=== PATIENT | male | born 1955 | race African-American/Black ===

== ENCOUNTER 2021-12-26 07:55 | Outpatient (CLI) | payer MEDICARE, SELFPAY ==
--- NOTE | 2021-12-27 09:48 | WPDPFTINT ---
PFT Procedure Performed PFT Procedure Performed Spirometry with Pre/Post Bronchodilator Plethysmography (Lung Vol) Diffusing Cap (DLCO) Flow Vol Loop PFT Interpretation Lung volumes were measured with the body plethysmography method. The diminished across the board lung volumes are indicative of restrictive respiratory disease. Spirometry showed diminished expiratory flow rates and a diminished FEV1 to FVC ratio of 87% also consistent with restrictive respiratory disease. Following administration of a bronchodilator there was no significant increase in the expiratory flow rates. Lung diffusion capacity is severely reduced at 48% predicted. The volume versus time tracing is consistent with suboptimal effort, which may in part explain the restrictive pattern on spirometry. Clinical correlation advised. Impression: Suboptimal effort. Moderate Restrictive respiratory disease. Severely reduced lung diffusion capacity.
--- NOTE | 2021-12-27 09:54 | WPDSIXMINUTE ---
Six Minute Walk Procedure Procedure Performed Pulmonary Stress Test (6 min walk) Six Minute Walk Six Minute Walk: This 6 minute walk test was carried out with the patient breathing ambient air. The pre walk oxyhemoglobin saturation was 95%. The patient walked over 251 meters with no pauses during testing. During the walk the oxyhemoglobin saturation remained in the range of 89% to 92%. Impression: No evidence of significant oxyhemoglobin desaturation on this testing.
== END 2021-12-26 07:56 | disposition home or self-care (01) ==
LOC: ANHPFT 07:59
PROVIDERS: PCP Internal Medicine; Visit Provider Nurse Practitioner
DX: R94.2 Abnormal results of pulmonary function studies (principal); Z86.16 Personal history of COVID-19
CPT/HCPCS: 94375; 94618; 94726; 94729

== ENCOUNTER 2022-02-03 10:37 | Outpatient (CLI) | payer MEDICARE, SELFPAY ==
--- NOTE | ~2022-02-03 | CT_ITS ---
EXAMINATION: CT diagnostic chest wo con DATE: 02/03/2022 11:49 INDICATION: Lung function restrictive TECHNIQUE: Computed tomography (CT) of the chest was performed without intravenous contrast. The dose -length product (DLP) was 653.83 mGy-cm. Automated exposure control and iterative reconstruction tech nique were employed. COMPARISON: None FINDINGS: There is a 3 mm nodule in the left lung apex. There are widespread groundglass opacities of the lungs with areas of bronchiectasis throughout the lungs, worst in the right upper lobe. Some are as of subpleural reticular opacity are also noted. No pleural effusion or pneumothorax. The heart siz e is normal. There are no pathologically enlarged thoracic lymph nodes. There is severe thoracic spon dylosis. Cysts of the liver measure up to 8 mm in the left hepatic lobe. IMPRESSION: 1. Chronic lung disease with areas of bronchiectasis and some areas with a pattern consistent with no nspecific interstitial pneumonia (NSIP). Reviewed, dictated and finalized at location A. IMPRESSION: 1. Chronic lung disease with areas of bronchiectasis and some areas with a jermain donavon consistent with nonspecific interstitial pneumonia (NSIP).
== END 2022-02-03 10:38 | disposition home or self-care (01) ==
LOC: ANHIMG 10:38
PROVIDERS: PCP Internal Medicine; Visit Provider Nurse Practitioner
DX: R94.2 Abnormal results of pulmonary function studies (principal); J98.4 Other disorders of lung; J47.9 Bronchiectasis, uncomplicated; R91.8 Other nonspecific abnormal finding of lung field
CPT/HCPCS: 71250

== ENCOUNTER 2022-07-29 08:15 | Outpatient (CLI) | payer MEDICARE, SELFPAY ==
--- NOTE | ~2022-07-29 | CT_ITS ---
EXAMINATION:CT diagnostic chest wo con DATE: 07/29/2022 08:35 INDICATION: Fibrosis of lung. TECHNIQUE: Computed tomography (CT) of the chest was performed without intravenous contrast. Automate d exposure control and iterative reconstruction technique were employed. The dose-length product (DLP ) was 679.49 mGy-cm. COMPARISON: Chest CT 02/03/2022 FINDINGS: There is bronchiectasis in the upper lobes, right middle lobe, and lingula. There are scatt ered areas of septal thickening and groundglass opacities in all lobes with relative sparing of left lower lobe. No honeycombing. No pleural effusion. There is left atrial enlargement of the heart. No p ericardial effusion. There are cysts in the liver measuring up to 10 mm. There is thoracic dextroscol iosis and kyphosis. There is mild chronic anterior wedging of multiple thoracic vertebral bodies. The re is severe cervical spondylosis and moderate thoracic spondylosis. IMPRESSION: 1. Chronic interstitial lung disease in a pattern of nonspecific interstitial pneumonia (NSIP), stabl sujit from 02/03/2022. Reviewed, dictated and finalized at location A. IMPRESSION: 1. Chronic interstitial lung disease in a pattern of nonspecific interstitial p neumonia (NSIP), stable from 02/03/2022.
== END 2022-07-29 08:16 | disposition home or self-care (01) ==
PROVIDERS: PCP Internal Medicine; Visit Provider Nurse Practitioner
DX: J84.10 Pulmonary fibrosis, unspecified (principal); J84.9 Interstitial pulmonary disease, unspecified
CPT/HCPCS: 71250

== ENCOUNTER 2023-01-29 07:39 | Outpatient (CLI) | payer MEDICARE, SELFPAY ==
--- NOTE | ~2023-01-29 | CT_ITS ---
EXAMINATION: CT chest high resolution wo de DATE: 01/29/2023 08:04 INDICATION: Interstitial lung disease TECHNIQUE: Computed tomography (CT) of the chest was performed without intravenous contrast. The dose -length product (DLP) was 477.38 mGy-cm. Automated exposure control and iterative reconstruction tech [employer] were employed. COMPARISON: 07/29/2022 FINDINGS: There are widespread groundglass opacities and bronchiectasis throughout the lungs without significant change. Widespread subpleural reticular opacities are also unchanged. There is a stable 3 mm nodule of the left lung apex. There are trace pleural effusions. No pneumothorax is identified. T here are no pathologically enlarged thoracic lymph nodes. Left atrial enlargement of the heart is not ed. There is moderate thoracic spondylosis. Cysts of the liver measure up to 10 mm in the left hepati c lobe. IMPRESSION: 1. Chronic interstitial lung disease in a pattern of nonspecific interstitial pneumonia (NSIP) withou t significant change. Reviewed, dictated and finalized at location L. IMPRESSION: 1. Chronic interstitial lung disease in a pattern of nonspecific interstitial p neumonia (NSIP) without significant change.
== END 2023-01-29 07:40 | disposition home or self-care (01) ==
PROVIDERS: PCP Internal Medicine; Visit Provider Nurse Practitioner
DX: J84.9 Interstitial pulmonary disease, unspecified (principal)
CPT/HCPCS: 71250

== ENCOUNTER 2024-09-20 10:27 | Emergency (ER) | payer MEDICARE, SELFPAY ==
--- NOTE | ~2024-09-20 | XR_ITS ---
XR chest 2V 09/20/2024 12:21 Indication: Weakness Procedure: PA and lateral views of the chest Comparison: No prior studies for comparison. Findings: There are coarse interstitial changes bilaterally. There is subtle airspace disease right m id and lower thorax as well as the left lower thorax. No pleural effusion or pneumothorax. Heart size normal. No acute osseous abnormality. Impression: 1: Mixed bilateral interstitial and airspace disease. Differential diagnosis includes edema, pneumoni a and/or interstitial fibrosis. Reviewed, dictated and finalized at location A. Impression: 1: Mixed bilateral interstitial and airspace disease. Differential diagnosis in cludes edema, pneumonia and/or interstitial fibrosis.
[2024-09-20 10:31] VITALS: BP 134/75; PULSE 58; RESP 16; TEMP 36.6; O2SAT 97
[2024-09-20 10:40] VITALS: BP 131/85; PULSE 70; RESP 12; O2SAT 96
--- OUTSIDE RECORDS SUMMARY | 2024-09-20 10:50 | XMS_ITS | Patient Health Record ---
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 Role Phone Alden Infante MD Primary Care Provider Unavail Katina Koenig Unavailable [phone] Allergies No Known Allergies Reason For Referral No Information Medications Medication SIG (Take, Route, Frequency, Duration) Notes Start Date End Date Status hydrALAZINE HCl Acti ve hydroCHLOROthiazide Active Vicodin PRN Active Cyclobenzaprine HCl Active oxyBUTYnin Chloride ER Active Metoprolol Succinate Active HYDROcodone-Acetaminophen Active Social History Tobacco Use: Social History Observation Description Date Details (start date - stop date) Never Smoker NA - NA Tobacco Use/Smoking Question Answer Notes Are you a nonsmoker Problems Problem Type SNOMED Code ICD Code Onset Dates Problem Status W/U Status Risk Notes Problem 46307452 Type 2 diabetes mellitus with other diabetic neurological complication (E11.49) Active confirmed Problem 09473529 Type 2 diabetes mellitus with hyperglycemia (E11.65) Active confirmed Problem 835328872 FDC (current) use of insulin (Z79.4) Active confirmed Problem 064114698 Hallux rigidus o f right foot (M20.21) Active confirmed Problem Type 2 diabetes mellitus without complication (E11.9) Active confirmed Problem 40770708 Neuropathic pain of both feet (G62.9) Active confirmed Vital Signs Height 68 in 07/07/2024 Weight 260 lbs 07/07/2024 BMI 39.53 kg/m2 07/07/2024 Encounters Encounter Location Date Provider Diagnosis 1 OF [facility] [address] [place] [address] 11/19/2023 Katina Gallagher Type 2 diabetes sunil itus with other diabetic neurological complication E11.49 ; Onychogryphosis L60.2 and Callus of foot L84 1 OF [facility] [place] [address] [place] [id number] 02/04/2024 Katina Gallagher Type 2 diabetes sunil itus with other diabetic neurological complication E11.49 ; Onychogryphosis L60.2 and Callus of foot L84 1 OF [facility] [place] [address] [place] [address] 04/28/2024 Katina Gallagher Type 2 diabetes sunil itus with other diabetic neurological complication E11.49 ; Onychogryphosis L60.2 and Callus of foot L84 1 OF [facility] [place] [address] [place] [address] 05/19/2024 Katina Gallagher Type 2 diabetes sunil itus with other diabetic neurological complication E11.49 1 OF [facility] [place] [address] [place] [address] 06/23/2024 Katina Gallagher Type 2 diabetes sunil itus with other diabetic neurological complication E11.49 1 OF [facility] [place] [address] [place] [address] 07/07/2024 Katina Gallagher Type 2 diabetes sunil itus with other diabetic neurological complication E11.49 ; Onychogryphosis L60.2 ; Callus of foot L84 and Nerve pain M79.2 Assessments Encounter Date Diagnosis (ICD Code) Assessment Notes Treatment Notes Treatment Clinical Notes Section Notes 11/19/2023 Type 2 diabetes mellitus with other diabetic neurological complication (ICD-10 - E11.49) Considering the associated comorbidities and physical exam findings today, this patient is at substantial risk of developing serious foot complications in the absence of regular and professional palliative foot care. 11/19/2023 Onychogryphosis (ICD-10 - L60.2) 02/04/2024 Type 2 diabetes mellitus with other diabetic neurological complication (ICD-10 - E11.49) Considering the associated comorbidities and physical exam findings today, this patient is at substantial risk of developing serious foot complications in the absence of regular and professional palliative foot care. 04/28/2024 Type 2 diabetes mellitus with other diabetic neurological complication (ICD-10 - E11.49) Considering the associated comorbidities and physical exam findings today, this patient is at substantial risk of developing serious foot complications in the absence of regular and professional palliative foot care. 05/19/2024 Type 2 diabetes mellitus with other diabetic neurological complication (ICD-10 - E11.49) 06/23/2024 Type 2 diabetes mellitus with other diabetic neurological complication (ICD-10 - E11.49) 07/07/2024 Type 2 diabetes mellitus with other diabetic neurological complication (ICD-10 - E11.49) Considering the associated comorbidities and physical exam findings today, this patient is at substantial risk of developing serious foot complications in the absence of regular and professional palliative foot care. 07/07/2024 Onychogryphosis (ICD-10 - L60.2) 07/07/2024 Callus of foot (ICD-10 - L84) 04/28/2024 Onychogryphosis (ICD-10 - L60.2) 02/04/2024 Onychogryphosis (ICD-10 - L60.2) 11/19/2023 Callus of foot (ICD-10 - L84) 02/04/2024 Callus of foot (ICD-10 - L84) 04/28/2024 Callus of foot (ICD-10 - L84) 07/07/2024 Nerve pain (ICD-10 - M79.2) Evaluation today included a review of medical history, review of systems, discussion of exam findings, and review of diagnoses and treatment options. Discussed signs and symptoms of peripheral neuropathy associated with diabetes. Discussed treatment options including topical and oral medications. He would like to hold off on any prescriptions at this time. I discussed the importance of keeping his blood sugar under control to prevent worsening of the symptoms. I also discussed that sometimes vitamin B12 can be helpful with reducing some of the nerve symptoms. Plan Of Treatment Next Appt Details Provider Name:Katina Gallagher, 10/17/2024 08:10:00 AM, [address], [place], [address], Insurance Providers Payer Name Payer Address Payer Phone Subscriber Number Group Number Insured Name Patient Relationship to Insured Coverage Start Date Coverage End Date [employer] Medicare Complete [address] [address] [place] [address] [id number] Kris Gaines Self - patient is the insured Medical (General) History Medical History History ICD Code arthritis, diabetes, high blood pressure , Surgical History Surgery Date(Month/Year)
--- OUTSIDE RECORDS SUMMARY | 2024-09-20 10:50 | XMS_ITS | Patient Health Record ---
Author Organization [facility] Address [address] [address] Care Team Providers Care Faculty Member Name Role Phone InfanteEarle marquezbbir Primary Care Provider [phone] Allergies Allergen (clinical drug ingredient) Drug/Non Drug Allergy documented on EMR Reaction Allergy Type Onset Date Status amlodipine Amlodipine Besylate Unknown Drug Allergy Active Lisinopril Unknown Drug Allergy Active Reason For Referral No Information Medications Medication SIG (Take, Route, Frequency, Duration) Notes Start Date End Date Status Spiriva Respimat 2.5 MCG/ACT 2 puffs Inh alation Once a day for 30 days Not-Taking hydroCHLOROthiazide 25 MG Take 1 tablet by mouth once daily for 60 days Active Doxycycline Hyclate 100 MG 1 capsule Ora lly every 12 hrs for 7 days 04/01/2018 Not-Taking Ergocalciferol 11938 IU 1 tablet Orally Once a week Not-Taking Tessalon Perles 100 MG 1 capsule as need ed Orally Three times a day for 7 days 03/22/2018 Not-Taking Cefuroxime Axetil 250 MG 1 tablet Orally every 12 hrs for 7 days 03/22/2018 Not-Taking Mi-Acid Gas Relief 80 MG 1 tablet after meals and at bedtime as needed Orally Four times a day Not-Taking oxyBUTYnin Chloride ER 15 MG 1 tablet Or ally Once a day Not-Taking guaiFENesin-Codeine 100-10 MG/5ML 5 ml Orally every 6 hrs for 30 days 06/01/2019 Not-Taking DOK 100 MG 1 tablet as needed Orally every 12 hours for 30 days Not-Taking HYDROcodone-Acetaminophen 5-325 MG 1 tablet as needed Orally every 6 hrs Not-Taking Atorvastatin Calcium 10 MG TAKE 1 TABLET BY MOUTH AT BEDTIME for 90 Not-Taking ProAir HFA 108 (90 Base) MCG/ACT 2 puffs as needed Inhalation every 6 hrs for 7 days 03/22/2018 Not-Taking ProAir HFA 108 (90 Base) MCG/ACT 2 puffs as needed Inhalation every 4 hrs for 30 days Not-Taking Cyclobenzaprine HCl 10 MG 1 tablet daily Orally for 30 days Not-Taking Lotrisone 1-0.05 % 1 application to affected area as needed Externally Twice a day for 30 days Not-Taking Tessalon Perles 100 MG 1 capsule as need ed Orally Three times a day for 7 days 06/10/2019 Not-Taking Benzonatate 100 MG 1 capsule as needed Orally Three times a day Not-Taking Ibuprofen 800 MG 1 tablet with food or milk as needed Orally Once a day for 30 days Active Metoprolol Tartrate 25 1 tablet with simin d Orally Once a day for 90 days Not-Taking Albuterol Sulfate HFA 108 (90 Base) MCG/ACT 2 puffs as needed Inhalation every 6 hrs for 30 days 04/19/2018 Active hydrALAZINE HCl 25 1 tablet Orally Three times a day for 30 Not-Taking Metoprolol Tartrate 25 MG Take 1 tablet by mouth once daily with food for 90 days Active Tessalon Perles 100 MG 1 capsule as need ed Orally Three times a day for 7 days 04/08/2018 Not-Taking hydrALAZINE HCl 25 MG TAKE 1 TABLET BY MOUTH THREE TIMES DAILY for 90 Active Tessalon Perles 100 MG 1 capsule as need ed Orally Three times a day for 7 days 04/29/2018 Not-Taking Doxycycline Hyclate 100 MG 1 capsule Ora lly every 12 hrs for 7 days 06/01/2019 Not-Taking Protonix 40 MG 1 tablet Orally Once a day for 30 Not-Taking MiraLax Mix-In [place] 17 GM 1 packet mixed with 8 ounces of fluid Orally Once a day Active Ciprofloxacin HCl 500 MG 1 tablet Orally every 12 hrs for 5 days 10/13/2018 Not-Taking traMADol HCl 50 MG 1 tablet as needed Orally Q 6 hours for 10 days Not-Taking Immunizations Vaccine Route Administration Date Status Comme nts Influenzal (split), seasonal, intermuscular,preservative free IM Intramuscular 02/05/2017 Administered Influenzal (split), seasonal, intermuscular,preservative free IM Intramuscular 01/07/2019 Administered Influenza, seasonal, injectable, preservative free, 3 yrs and above IM Intramuscular 03/20/2016 Pending Social History Tobacco Use: Social History Observation Description Date Details (start date - stop date) Never Smoker NA - NA Tobacco Use/Smoking Question Answer Notes Are you a nonsmoker Additional Findings: Tobacco Non-User Current no n-smoker Alcohol Screen (Audit-C) Question Answer Notes Did you have a drink containing alcohol in the p ast year? No Points 0 Interpretation Negative Tobacco use other than smoking: Question Answer Notes Are you an other tobacco user? No Problems Problem Type SNOMED Code ICD Code Onset Dates Problem Status W/U Status Risk Notes Problem Malignant neoplasm of prostate (079124624) Malignant neoplasm of prostate (C61) Active confirmed Problem Complication due to diabetes mellitus type 2 (42648054576590) Type 2 diabetes mellitus with other specified complication (E11.69) Active confirmed Problem Disorder due to type 2 diabetes mellitus (756292193) Type 2 diabetes mellitus with unspecified complications (E11.8) Active confirmed Problem 0301453 Cardiomegaly (I51.7) Active confirmed Problem Restless legs (51066147) RLS (restless legs syndrome) (G25.81) Active confirmed Problem Hyperlipidemia (62246967) Hyperlipidemia (E78.5) Active confirmed Problem 49422574 Anxiety (F41.9) Active confirmed Problem 905426454 Gastroesophageal reflux disease without esophagitis (K21.9) Active confirmed Problem Vitamin D deficiency (45897420) Vitamin D deficiency (E55.9) Active confirmed Problem 84215682 Chronic obstruct chris pulmonary disease, unspecified COPD type (J44.9) Active confirmed Problem Constipation (97737961) Constipation (K59.00) Active confirmed Problem Obstructive sleep apnea syndrome (31829559) KODAK (obstructive sleep apnea) (G47.33) Active confirmed Problem 6098068 Benign essential hypertension (I10) Active confirmed Problem Generalized osteoarthritis (230679030) Generalized osteoarthritis (M15.9) Active confirmed Problem 277828590 Diverticulosis o f colon (K57.30) Active confirmed Problem 380297513 Morbid obesity (E66.01) Active confirmed Problem 71170661 Degeneration of cervical intervertebral disc (M50.30) Active confirmed Problem Pulmonary fibrosis (14173916) Pulmonary fibrosis (J84.10) Active confirmed Problem 90142610 DDD (degenerativ e disc disease), thoracic (M51.34) Active confirmed Problem Lumbar spondylosis (917006810) Lumbar spondylosis (M47.816) Active confirmed Problem Localized, primary osteoarthritis of the pelvic region and thigh (123055799) Osteoarthritis of right hip (M16.11) Active confirmed Problem History of malignant neoplasm of prostate (519866177) History of prostate cancer (Z85.46) Active confirmed Problem Osteoarthritis of knee (420874595) Osteoarthritis of right knee (M17.11) Active confirmed Problem Atypical chest pain (931743876) Atypical chest pain (R07.89) Active confirmed Problem 503718682 Numbness of feet (R20.0) Active confirmed Problem 1068485 Proctitis (K62.89) Active confirmed Problem 862117863 Type 2 diabetes mellitus without complication, without long-term current use of insulin (E11.9) Active confirmed Problem 87984801 Type 2 diabetes mellitus with hyperglycemia, without long-term current use of insulin (E11.65) Active confirmed Problem 23181526 DM (diabetes mellitus), 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) Active confirmed Problem Diabetic peripheral neuropathy associated with type 2 diabetes mellitus (8076973497038) Controlled type 2 diabetes mellitus with neuropathy (E11.40) Active confirmed Problem 429954987 COVID-19 virus infection (U07.1) Active confirmed Problem Abnormal CXR (ch est x-ray) (R93.89) Active confirmed Problem 0679546 Non-compliance (Z91.199) Active confirmed Vital Signs Heart Rate 74 /min 08/04/2024 ple Temperature 97.9 degrees Fahrenheit 08/04/2024 ple Respiratory Rate 16 /min 08/04/2024 ple Blood pressure diastolic 74 mm Hg 08/04/2024 ple Oximetry 98 % 08/04/2024 ple Height 68 in 08/04/2024 ple Blood pressure systolic 120 mm Hg 08/04/2024 ple Weight 257 lbs 08/04/2024 ple BMI 39.07 kg/m2 08/04/2024 ple Encounters Encounter Location Date Provider Diagnosis [address] [address] 09/22/2023 Alden Infante Type 2 diabetes sunil itus with hyperglycemia, without long-term current use of insulin E11.65 ; Type 2 diabetes mellitus with other specified complication E11.69 ; Benign essential hypertension I10 ; Hyperlipidemia E78.5 ; Chronic obstructive pulmonary disease, unspecified COPD type J44.9 ; Gastroesophageal reflux disease without esophagitis K21.9 ; Morbid obesity E66.01 ; KODAK (obstructive sleep apnea) G47.33 and Malignant neoplasm of prostate C61 [facility] [address] [address] 01/13/2024 Alden Infante Type 2 diabetes sunil itus with hyperglycemia, without long-term current use of insulin E11.65 ; DM (diabetes mellitus), type 2 with neurological complications E11.49 ; Benign essential hypertension I10 ; Hyperlipidemia E78.5 ; Chronic obstructive pulmonary disease, unspecified COPD type J44.9 ; KODAK (obstructive sleep apnea) G47.33 and Vitamin D deficiency E55.[address] [address] 04/18/2024 Alden Infante Type 2 diabetes sunil itus with hyperglycemia, without long-term current use of insulin E11.65 ; Type 2 diabetes mellitus with unspecified complications E11.8 ; Hyperlipidemia E78.5 ; Benign essential hypertension I10 ; Chronic obstructive pulmonary disease, unspecified COPD type J44.9 ; Gastroesophageal reflux disease without esophagitis K21.9 ; Morbid obesity E66.01 ; History of prostate cancer Z85.46 ; Anxiety F41.9 and Vitamin D deficiency E55.[address] [address] 05/12/2024 Alden Infante Advance care plannin olman Z71.89 ; Encounter for general adult medical examination without abnormal findings Z00.00 ; Abdominal pain R10.9 ; Benign essential hypertension I10 ; Hyperlipidemia E78.5 and Gastroesophageal reflux disease without esophagitis K21.[address] [address] 05/27/2024 Alden Infante Type 2 diabetes sunil itus with hyperglycemia, without long-term current use of insulin E11.65 ; DM (diabetes mellitus), type 2 with neurological complications E11.49 ; Benign essential hypertension I10 ; Hyperlipidemia E78.5 ; KODAK (obstructive sleep apnea) G47.33 ; Morbid obesity E66.01 ; RLS (restless legs syndrome) G25.81 ; History of prostate cancer Z85.46 ; Abnormal CXR (chest x-ray) R93.89 ; Pulmonary fibrosis J84.10 ; Atypical chest pain R07.89 ; Constipation K59.00 ; Malignant neoplasm of prostate C61 ; Chronic obstructive pulmonary disease, unspecified COPD type J44.9 ; Anxiety F41.9 and Controlled type 2 diabetes mellitus with neuropathy E11.40 [place] [id number] [address] 08/04/2024 Alden Infante Type 2 diabetes sunil itus with hyperglycemia, without long-term current use of insulin E11.65 ; DM (diabetes mellitus), type 2 with neurological complications E11.49 ; Benign essential hypertension I10 ; Hyperlipidemia E78.5 ; Cardiomegaly I51.7 ; KODAK (obstructive sleep apnea) G47.33 ; Anxiety F41.9 and Non-compliance Z91.199 Assessments Encounter Date Diagnosis (ICD Code) Assessment Notes Treatment Notes Treatment Clinical Notes Section Notes 09/22/2023 Type 2 diabetes mellitus with hyperglycemia, without long-term current use of insulin (ICD-10 - E11.65) Type 2 Diabetes: Care Instructions material was published to portal 04/18/2024 Type 2 diabetes mellitus with hyperglycemia, without long-term current use of insulin (ICD-10 - E11.65) Type 2 Diabetes: Care Instructions material was published 01/13/2024 Type 2 diabetes mellitus with hyperglycemia, without long-term current use of insulin (ICD-10 - E11.65) Type 2 Diabetes: Care Instructions material was published 05/12/2024 Advance care planning (ICD-10 - Z71.89) 05/12/2024 Encounter for general adult medical examination without abnormal findings (ICD-10 - Z00.00) 05/27/2024 Type 2 diabetes mellitus with hyperglycemia, without long-term current use of insulin (ICD-10 - E11.65) Type 2 Diabetes: Care Instructions material was published 05/27/2024 DM (diabetes mellitus), type 2 with neurological complications (ICD-10 - E11.49) 08/04/2024 Type 2 diabetes mellitus with hyperglycemia, without long-term current use of insulin (ICD-10 - E11.65) Type 2 Diabetes: Care Instructions material was published 08/04/2024 DM (diabetes mellitus), type 2 with neurological complications (ICD-10 - E11.49) 08/04/2024 Benign essential hypertension (ICD-10 - I10) 09/22/2023 Type 2 diabetes mellitus with other specified complication (ICD-10 - E11.69) 05/27/2024 Benign essential hypertension (ICD-10 - I10) 05/12/2024 Abdominal pain (ICD-10 - R10.9) Abdominal Pain: Care Instructions material was published 01/13/2024 DM (diabetes mellitus), type 2 with neurological complications (ICD-10 - E11.49) 04/18/2024 Type 2 diabetes mellitus with unspecified complications (ICD-10 - E11.8) 09/22/2023 Benign essential hypertension (ICD-10 - I10) 04/18/2024 Hyperlipidemia (ICD-10 - E78.5) 01/13/2024 Benign essential hypertension (ICD-10 - I10) 05/12/2024 Benign essential hypertension (ICD-10 - I10) 05/27/2024 Hyperlipidemia (ICD-10 - E78.5) 08/04/2024 Hyperlipidemia (ICD-10 - E78.5) 08/04/2024 Cardiomegaly (ICD-10 - I51.7) 05/27/2024 KODAK (obstructive sleep apnea) (ICD-10 - G47.33) 05/12/2024 Hyperlipidemia (ICD-10 - E78.5) 01/13/2024 Hyperlipidemia (ICD-10 - E78.5) 04/18/2024 Benign essential hypertension (ICD-10 - I10) 09/22/2023 Hyperlipidemia (ICD-10 - E78.5) 09/22/2023 Chronic obstructive pulmonary disease, unspecified COPD type (ICD-10 - J44.9) 04/18/2024 Chronic obstructive pulmonary disease, unspecified COPD type (ICD-10 - J44.9) 01/13/2024 Chronic obstructive pulmonary disease, unspecified COPD type (ICD-10 - J44.9) 05/12/2024 Gastroesophageal reflux disease without esophagitis (ICD-10 - K21.9) 05/27/2024 Morbid obesity (ICD-10 - E66.01) 08/04/2024 KODAK (obstructive sleep apnea) (ICD-10 - G47.33) 08/04/2024 Anxiety (ICD-10 - F41.9) 05/27/2024 RLS (restless legs syndrome) (ICD-10 - G25.81) 01/13/2024 KODAK (obstructive sleep apnea) (ICD-10 - G47.33) 04/18/2024 Gastroesophageal reflux disease without esophagitis (ICD-10 - K21.9) 09/22/2023 Gastroesophageal reflux disease without esophagitis (ICD-10 - K21.9) 09/22/2023 Morbid obesity (ICD-10 - E66.01) 04/18/2024 Morbid obesity (ICD-10 - E66.01) 01/13/2024 Vitamin D deficiency (ICD-10 - E55.9) 05/27/2024 History of prostate cancer (ICD-10 - Z85.46) 08/04/2024 Non-compliance (ICD-10 - Z91.199) 05/27/2024 Abnormal CXR (chest x-ray) (ICD-10 - R93.89) 04/18/2024 History of prostate cancer (ICD-10 - Z85.46) 09/22/2023 KODAK (obstructive sleep apnea) (ICD-10 - G47.33) 09/22/2023 Malignant neoplasm of prostate (ICD-10 - C61) 04/18/2024 Anxiety (ICD-10 - F41.9) 05/27/2024 Pulmonary fibrosis (ICD-10 - J84.10) 05/27/2024 Atypical chest pain (ICD-10 - R07.89) 04/18/2024 Vitamin D deficiency (ICD-10 - E55.9) 05/27/2024 Constipation (ICD-10 - K59.00) 05/27/2024 Malignant neoplasm of prostate (ICD-10 - C61) 05/27/2024 Chronic obstructive pulmonary disease, unspecified COPD type (ICD-10 - J44.9) 05/27/2024 Anxiety (ICD-10 - F41.9) 05/27/2024 Controlled type 2 diabetes mellitus with neuropathy (ICD-10 - E11.40) Plan Of Treatment Next Appt Details Provider Name:Alden loving, 11/17/2024 09:00:00 AM, [address] [facility], [address], [place], [address], Insurance Providers Payer Name Payer Address Payer Phone Subscriber Number Group Number Insured Name Patient Relationship to Insured Coverage Start Date Coverage End Date [employer] MEDICARE COMPLETE [address] [address] [place] [phone] [id number] JOSUE JHOANA Self - patient is the insured 8 Medications Administered Medication Instructions Date of Administration Dosage Notes Depo Medrol 20mg 04/29/2018 20 mg Medical (General) History Medical History History ICD Code Anxiety disorder Hypertension(benign) BPH(Benign prostatic hypertr oph without outflow obstruction),Note-Presently asymptomatic ,Note-C5-C6, L4-L5 and L5-S1 Cataract Cervical degenerative disc disease Lumbar degenerative disc disease Diverticulosis of colon without divertic ulitis Hallux valgus AND bunion Hammer toe Impaired glucose tolerance Legal blindness [place],Note-Right eye Low back pain,Note-Chronic Obesity Osteoarthritis Plantar fasciitis ,Note-03/18/2006 Restless legs Sinusitis Sleep apnea,Note-Did not go for CPAP tit ration Spinal stenosis in cervical region,Note- Mild, multilevel Surgical History Surgery Date(Month/Year) Cataract Surgery ; Colonoscopy [id number] ; Colonoscopy [id number] ; Myoview stress test ;
--- OUTSIDE RECORDS SUMMARY | 2024-09-20 10:50 | XMS_ITS ---
Author Organization [facility] Address [address] [facility] [address] [place] [address] Care Team Providers Care Gas Cutter Name Role Phone Alden Infante Primary Care Provider [phone] Encounters Encounter Location Date Provider Diagnosis [facility] [address] [facility] [address] [place] [address] 06/10/2024 Alden Infante Plan Of Treatment Next Appt Details Provider Name:Alden loving, 11/17/2024 09:00:00 AM, [address] [facility], [address], [place], [address], Progress Notes * JHOANA KYLE EDOB: (69 yo M)Acc No.[id number]:06/10/2024 Progress Notes Patient: Mima LAND JHOANA Yusuf Provider: Kathryn Infante M.D. :1955 A ge:68 Y S ex:Male Date:06/10/2024 Address:[address] [place], [place] [id number] Subjective: * Chief Complaints: * * Medical History: Objective: * Vitals: Assessment: Plan: * Treatment: * * Electronic signature of Ariel Infante MD on 09/20/2024 at 11:50 AM EDT Sign off status: Pending * Provider: Kathryn Infante M.D. Date: 06/10/2024 Generated for Norman rivera/Nabor/eTransmitting on: 0 09/20/2024 11:50 AM EDT
--- OUTSIDE RECORDS SUMMARY | 2024-09-20 10:51 | XMS_ITS ---
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 Name Role Phone Alden Infante Primary Care Provider [phone] Allergies Allergen (clinical drug ingredient) Drug/Non Drug Allergy documented on EMR Reaction Allergy Type Onset Date Status amlodipine Amlodipine Besylate Unknown Drug Allergy Active Lisinopril Unknown Drug Allergy Active REASON FOR VISIT F/U DM Medications Medication SIG (Take, Route, Frequency, Duration) Notes Start Date End Date Status Lotrisone 1-0.05 % 1 application to affected area as needed Externally Twice a day for 30 days Not-Taking Mi-Acid Gas Relief 80 MG 1 tablet after meals and at bedtime as needed Orally Four times a day Not-Taking oxyBUTYnin Chloride ER 15 MG 1 tablet Or ally Once a day Not-Taking guaiFENesin-Codeine 100-10 MG/5ML 5 ml Orally every 6 hrs for 30 days 06/01/2019 Not-Taking DOK 100 MG 1 tablet as needed Orally every 12 hours for 30 days Not-Taking Ergocalciferol 51759 IU 1 tablet Orally Once a week Not-Taking HYDROcodone-Acetaminophen 5-325 MG 1 tablet as needed Orally every 6 hrs Not-Taking Atorvastatin Calcium 10 MG TAKE 1 TABLET BY MOUTH AT BEDTIME for 90 Not-Taking ProAir HFA 108 (90 Base) MCG/ACT 2 puffs as needed Inhalation every 4 hrs for 30 days Not-Taking Cyclobenzaprine HCl 10 MG 1 tablet daily Orally for 30 days Not-Taking Spiriva Respimat 2.5 MCG/ACT 2 puffs Inh alation Once a day for 30 days Not-Taking hydroCHLOROthiazide 25 MG Take 1 tablet by mouth once daily for 60 days Active Ibuprofen 800 MG 1 tablet with food or milk as needed Orally Once a day for 30 days Active Metoprolol Tartrate 25 MG Take 1 tablet by mouth once daily with food for 90 days Active hydrALAZINE HCl 25 MG TAKE 1 TABLET BY MOUTH THREE TIMES DAILY for 90 Active Tessalon Perles 100 MG 1 capsule as need ed Orally Three times a day for 7 days 03/22/2018 Not-Taking Cefuroxime Axetil 250 MG 1 tablet Orally every 12 hrs for 7 days 03/22/2018 Not-Taking Albuterol Sulfate HFA 108 (90 Base) MCG/ACT 2 puffs as needed Inhalation every 6 hrs for 30 days 04/19/2018 Active ProAir HFA 108 (90 Base) MCG/ACT 2 puffs as needed Inhalation every 6 hrs for 7 days 03/22/2018 Not-Taking MiraLax Mix-In [place] 17 GM 1 packet mixed with 8 ounces of fluid Orally Once a day Active Doxycycline Hyclate 100 MG 1 capsule Ora lly every 12 hrs for 7 days 04/01/2018 Not-Taking Metoprolol Tartrate 25 1 tablet with simin d Orally Once a day for 90 days Not-Taking hydrALAZINE HCl 25 1 tablet Orally Three times a day for 30 Not-Taking Tessalon Perles 100 MG 1 capsule as need ed Orally Three times a day for 7 days 04/08/2018 Not-Taking Tessalon Perles 100 MG 1 capsule as need ed Orally Three times a day for 7 days 04/29/2018 Not-Taking Tessalon Perles 100 MG 1 capsule as need ed Orally Three times a day for 7 days 06/10/2019 Not-Taking Doxycycline Hyclate 100 MG 1 capsule Ora lly every 12 hrs for 7 days 06/01/2019 Not-Taking Protonix 40 MG 1 tablet Orally Once a day for 30 Not-Taking Ciprofloxacin HCl 500 MG 1 tablet Orally every 12 hrs for 5 days 10/13/2018 Not-Taking traMADol HCl 50 MG 1 tablet as needed Orally Q 6 hours for 10 days Not-Taking Benzonatate 100 MG 1 capsule as needed Orally Three times a day Not-Taking Social History Tobacco Use: Social History Observation [...] Are you an other tobacco user? 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 ; Benign essential hypertension I10 ; Hyperlipidemia E78.5 ; Cardiomegaly I51.7 ; KODAK (obstructive sleep apnea) G47.33 ; Anxiety F41.9 and Non-compliance Z91.199 Assessments Encounter Date Diagnosis (ICD Code) Assessment Notes Treatment Notes Treatment Clinical Notes Section Notes 08/04/2024 Type 2 diabetes mellitus with hyperglycemia, without long-term current use of insulin (ICD-10 - E11.65) Type 2 Diabetes: Care Instructions material was published 08/04/2024 DM (diabetes mellitus), type 2 with neurological complications (ICD-10 - E11.49) 08/04/2024 Benign essential hypertension (ICD-10 - I10) 08/04/2024 Hyperlipidemia (ICD-10 - E78.5) 08/04/2024 Cardiomegaly (ICD-10 - I51.7) 08/04/2024 KODAK (obstructive sleep apnea) (ICD-10 - G47.33) 08/04/2024 Anxiety (ICD-10 - F41.9) 08/04/2024 Non-compliance (ICD-10 - Z91.199) Plan Of Treatment Treatment Notes Assessment Notes Type 2 diabetes mellitus wit h hyperglycemia, without long-term current use of insulin Type 2 Diabetes: Care Instructions mater ial was published Next Appt Details Provider Name:Alden Souza fabienne, 11/17/2024 09:00:00 AM, [address] [facility], [place], [address], Progress Notes * JHOANA KYLE EDOB: [birth year] (69 yo M)Acc No.[id number]:08/04/2024 Progress Notes Patient: JHOANA OCAMPO Provider: Kathryn Infante M.D. :1955 A ge:69 Y S ex:Male Date:08/04/2024 Address:[address] [place], [place] [id number] Subjective: * Chief Complaints: * 1 . F/U DM. * Medical History: A nxiety disorder, Hypertension(benign), BPH(Benign prostatic hypertroph without outflow obstruction),Note-Presently asymptomatic, ,Note-C5-C6, L4-L5 and L5-S1, Cataract, Cervical degenerative disc disease, Lumbar degenerative disc disease, Diverticulosis of colon without diverticulitis, Hallux valgus AND bunion, Hammer toe, Impaired glucose tolerance, Legal blindness [place],Note-Right eye, Low back pain,Note-Chronic, Obesity, Osteoarthritis, Plantar fasciitis, ,Note-03/18/2006, Restless legs, Sinusitis, Sleep apnea,Note-Did not go for CPAP titration, Spinal stenosis in cervical region,Note-Mild, multilevel. * Surgical History: C ataract Surgery ; , Colonoscopy [id number] ; , Colonoscopy [id number] ; , Myoview stress test ; . * Family History: F ather: diagnosed with Diabetes mellitus without mention of complication, type II or unspecified type, not stated as uncontrolled. M aternal Grand Father: diagnosed with Other malignant neoplasm of unspecified site. 1 sister(s) - healthy. . * Social History: T obacco Use: T obacco Use/Smoking A re you a n onsmoker, A dditional Findings: Tobacco Non-User C urrent non-smoker. T obacco use other than smoking A re you an other tobacco user? N o. M igSocialHx: M igSocialHx: Alcohol Use (ANS-No) ;Drug Use (ANS-No) ;Exposed to Second Hand Smoke (ANS-No) ;History of IV Drug Use (ANS-No) ;Lives In (ANS-Home) ;Lives With (ANS-Spouse) ;Tobacco status (ANS-Never smoker) ;. D rugs/Alcohol: D rugs H ave you used drugs other than those for medical reasons in the past 12 months??No. A lcohol Screen (Audit-C) D id you have a drink containing alcohol in the past year? N o, P oints 0 , I nterpretation N egative. C affeine I ntake: n one. D o you smoke marijuana?: Denies. Do you drink alcohol?: No. * Medications: T aking MiraLax Mix-In [place] 17 GM Packet 1 packet mixed with 8 ounces of fluid Orally Once a day , Taking Albuterol Sulfate HFA 108 (90 Base) MCG/ACT Aerosol Solution 2 puffs as needed Inhalation every 6 hrs , Taking Ibuprofen 800 MG Tablet 1 tablet with food or milk as needed Orally Once a day , Taking hydrALAZINE HCl 25 MG Tablet TAKE 1 TABLET BY MOUTH THREE TIMES DAILY , Taking Metoprolol Tartrate 25 MG Tablet Take 1 tablet by mouth once daily with food , Taking hydroCHLOROthiazide 25 MG Tablet Take 1 tablet by mouth once daily , Not-Taking/PRN Spiriva Respimat 2.5 MCG/ACT Aerosol Solution 2 puffs Inhalation Once a day , Not-Taking/PRN Ergocalciferol 74623 IU Tablet 1 tablet Orally Once a week , Not-Taking/PRN Atorvastatin Calcium 10 MG Tablet TAKE 1 TABLET BY MOUTH AT BEDTIME , Not-Taking/PRN HYDROcodone-Acetaminophen 5- 325 MG Tablet 1 tablet as needed Orally every 6 hrs , Not-Taking/PRN Cyclobenzaprine HCl 10 MG Tablet 1 tablet daily Orally , Not-Taking/PRN ProAir HFA 108 (90 Base) MCG/ACT Aerosol Solution 2 puffs as needed Inhalation every 4 hrs , Not-Taking/PRN oxyBUTYnin Chloride ER 15 MG Tablet Extended Release 24 Hour 1 tablet Orally Once a day , Not-Taking/PRN Mi-Acid Gas Relief 80 MG Tablet Chewable 1 tablet after meals and at bedtime as needed Orally Four times a day , Not-Taking/PRN DOK 100 MG Capsule 1 tablet as needed Orally every 12 hours , Not-Taking/PRN guaiFENesin-Codeine 100- 10 MG/5ML Syrup 5 ml Orally every 6 hrs , Not-Taking/PRN Lotrisone 1-0.05 % Cream 1 application to affected area as needed Externally Twice a day , Not-Taking/PRN Benzonatate 100 MG Capsule 1 capsule as needed Orally Three times a day , Not-Taking/PRN Tessalon Perles 100 MG Capsule 1 capsule as needed Orally Three times a day , Not-Taking/PRN Protonix 40 MG Tablet Delayed Release 1 tablet Orally Once a day , Not-Taking/PRN Doxycycline Hyclate 100 MG Capsule 1 capsule Orally every 12 hrs , Not-Taking/PRN traMADol HCl 50 MG Tablet 1 tablet as needed Orally Q 6 hours , Not-Taking/PRN Ciprofloxacin HCl 500 MG Tablet 1 tablet Orally every 12 hrs , Not-Taking/PRN hydrALAZINE HCl 25 Tablet 1 tablet Orally Three times a day , Not-Taking/PRN Metoprolol Tartrate 25 Tablet 1 tablet with food Orally Once a day , Not-Taking/PRN Tessalon Perles 100 MG Capsule 1 capsule as needed Orally Three times a day , Not-Taking/PRN Tessalon Perles 100 MG Capsule 1 capsule as needed Orally Three times a day , Not-Taking/PRN Doxycycline Hyclate 100 MG Capsule 1 capsule Orally every 12 hrs , Not-Taking/PRN Cefuroxime Axetil 250 MG Tablet 1 tablet Orally every 12 hrs , Not-Taking/PRN Tessalon Perles 100 MG Capsule 1 capsule as needed Orally Three times a day , Not-Taking/PRN ProAir HFA 108 (90 Base) MCG/ACT Aerosol Solution 2 puffs as needed Inhalation every 6 hrs , Medication List reviewed and reconciled with the patient * Allergies: A mlodipine Besylate, Lisinopril. Objective: * Vitals: T emp:97.9F, HR:74/min, BP:120/74mm Hg, Wt:257lbs, BMI:39.07Index, Ht: 68 in, RR:16/min, Oxygen sat %:98%, Peak Flow:RA, Ht-cm: 172.72 cm, Wt-k.57 kg. ple. Assessment: * Assessment: 1. T ype 2 diabetes mellitus with hyperglycemia, without long-term current use of insulin - E11.65 (Primary) 2 . D M (diabetes mellitus), type 2 with neurological complications - E11.49 3 . B enign essential hypertension - I10 4 . H yperlipidemia - E78.5 5 . C ardiomegaly - I51.7 6 . O SA (obstructive sleep apnea) - G47.33 7 . A nxiety - F41.9 8 . N on-compliance - Z91.199 Plan: * Treatment: * Preventive Medicine: Your Preventative Wellness Plan: D iabetic Foot Exam Dr Gallagher. * * Electronic signature of Ariel Infante MD on 09/20/2024 at 11:51 AM EDT Sign off status: Pending * Provider: Kathryn Infante M.D. Date: 0 08/04/2024 Generated for Norman rivera/Nabor/Dominicsmitting on: 0 09/20/2024 11:51 AM EDT
--- OUTSIDE RECORDS SUMMARY | 2024-09-20 10:51 | XMS_ITS | Referral Summary ---
Author Organization [facility] Address [address] [place] [address] Care Team Providers Care Checker Name Role Phone Alden Infante MD Primary Care Provider [phone] Encounters Date Type Department Care Team Description 08/01/2024 2:05 PM CDT Lab [facility] [address], [place] [id number] from Last 3 Months Allergies No known active allergies Medications albuterol HFA (ProAir HFA) 90 mcg/actuation inhaler Inhale 2 puffs 2 (two) times a day as needed 8 Active cyclobenzaprine (FLEXERIL) 10 mg tablet Take 10 mg by mouth 2 (two) times a day as needed for muscle spasms 1 Active hydrALAZINE (APRESOLINE) 25 mg tablet Take 25 mg by mouth 3 (three) times a day 8 Active metoprolol tartrate (LOPRESSOR) 25 mg immediate release tablet Take 25 mg by mouth daily 8 Active hydroCHLOROthia zide (HYDRODIURIL) 25 mg tablet Take 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 Pt ok with bipap, wishes to be DNR if symptoms worsen. Placed on decadron and remdesivir. Ok with pulmonary consult Primary hypertension 03/23/2021 Assessment & Plan (03/23/2021 9:09 PM NEURO OPHTHALMOLOGIST): Cont home meds, monitor Obesity 03/23/2021 Assessment & Plan (03/23/2021 9:10 PM NEURO OPHTHALMOLOGIST): Increases risk from covid Social History Tobacco Use Types Packs/Day Years Used Date Smoking Tobacco: Never Alcohol Use Standard Drinks/Week Comments Never 0 (1 standard drink = 0.6 oz pur e alcohol) Sex and Gender Information Value Date Recorded Sex Assigned at Not on file Legal Sex Male 4:52 AM NEURO OPHTHALMOLOGIST Gender Identity Not on file Sexual Orientation Not on file Last Filed Vital Signs Vital Sign Reading Time Taken Comments Blood Pressure 132/91 04/12/2021 8:05 AM NEURO OPHTHALMOLOGIST Pulse 100 04/12/2021 10:25 AM NEURO OPHTHALMOLOGIST Temperature 36.4 C (97.6 F) 04/12/2021 8:05 AM NEURO OPHTHALMOLOGIST Respiratory Rate 28 04/12/2021 8:30 AM NEURO OPHTHALMOLOGIST Oxygen Saturation 90% 04/12/2021 11:54 AM NEURO OPHTHALMOLOGIST Inhaled Oxygen Concentration - - Weight 99.9 kg (220 lb 3.8 oz) 04/06/2021 6:15 A M NEURO OPHTHALMOLOGIST Height 170.2 cm (5' 7) 03/23/2021 3:05 PM NEURO OPHTHALMOLOGIST Body Mass Index 34.49 03/23/2021 3:05 PM NEURO OPHTHALMOLOGIST Plan of Treatment Not on file Procedures Procedure Name Priority Date/Time Associated Diagnosis Comments EGFR Routine 08/01/2024 2:20 PM CDT DIFFERENTIAL AUTO Routine 08/01/2024 2:2 0 PM CDT LIPID PANEL Routine 08/01/2024 2:20 PM CDT CBC WITH AUTO DIFFERENTIAL Routine 08/01/2024 2:20 PM CDT HEMOGLOBIN A1C Routine 08/01/2024 2:20 PM CDT COMPREHENSIVE METABOLIC PANEL Routine 08/01/2024 2:20 PM CDT PSA SCREEN Routine 02/24/2024 11:[address] ABDOMEN WO CONTRAST IP Routine 03/31/2021 8:12 AM NEURO OPHTHALMOLOGIST from Last 3 Months or Most Recently Relevant to Health Maintenance Results * eGFR (08/01/2024 2:20 PM CDT) eGFR 82 >=60 mL/min/1. 73 m2 Comment: Interpretive Data Reference Interval Normal >/= 90 mL/min/1.73m2 Mildly decreased* 60 - 89 mL/min/1.73m2 Mildly to moderately decreased 45 - 59 mL/min/1.73m2 Moderately to severely decreased 30 - 44 mL/min/1.73m2 Severely decreased 15 - 29 mL/min/1.73m2 Kidney Failure < 15 mL/min/1.73m2 *Relative to young adult level Estimated glomerular filtration rate is determined by the 2020 CKD-EPI equation recommended by the National Kidney Foundation (A Unifying Approach to GFR Estimation: Recommendations of the NKF-ASK Task Force on Reassessing the Inclusion of Race in Diagnosing Kidney Disease, JASN 2020). The CKD-EPI equation should not be used for patients with unstable renal function and has not been validated in children and those over 70. Current interpretive data was last reviewed 2021. Blood 08/01/2024 2:20 PM CDT 08/01/2024 2:25 PM CDT us Alden Infante MD LAB BLOOD ORDERABLES Final Result [facility] [address] [facility] [place] [address] * Differential, auto (08/01/2024 2:20 PM CDT) Pathologist [facility] Neutrophil abs 3.19 1.50 - 6.50 K/cumm Imm gran abs 0.01 0.00 - 0.10 K/cumm [facility] Lymphocyte abs 2.66 0.80 - 3.30 K/cumm [facility] Monocyte abs 0.54 0.20 - 0.80 K/cumm [facility] Eosinophil abs 0.33 0.00 - 0.50 K/cumm [facility] Basophil abs 0.04 0.00 - 0.10 K/cumm [facility] Neutrophil pct 47.1 % [facility] Comment: Interpretive Data Percent cell count reference ranges are not reported, since discordance with absolute values may lead to misinterpretation of CBC data. Current Interpretive Data was last revised on 2017. Imm gran pct 0.1 % [facility] Comment: Interpretive Data Percent cell count reference ranges are not reported, since discordance with absolute values may lead to misinterpretation of CBC data. Current Interpretive Data was last revised on 2017. Lymphocyte pct 39.3 % [facility] Comment: Interpretive Data Percent cell count reference ranges are not reported, since discordance with absolute values may lead to misinterpretation of CBC data. Current Interpretive Data was last revised on 2017. Monocyte pct 8.0 % [facility] Comment: Interpretive Data Percent cell count reference ranges are not reported, since discordance with absolute values may lead to misinterpretation of CBC data. Current Interpretive Data was last revised on 2017. Eosinophil pct 4.9 % [facility] Comment: Interpretive Data Percent cell count reference ranges are not reported, since discordance with absolute values may lead to misinterpretation of CBC data. Current Interpretive Data was last revised on 2017. Basophil pct 0.6 % [facility] Comment: Interpretive Data Percent cell count reference ranges are not reported, since discordance with absolute values may lead to misinterpretation of CBC data. Current Interpretive Data was last revised on 2017. Blood 08/01/2024 2:20 PM CDT 08/01/2024 2:25 PM CDT Alden Infante MD LAB BLOOD ORDERABLES Final Result Performing Organization Address City/[facility] Co de Phone Number [facility] [address] [address] * CBC with auto differential (08/01/2024 2:20 PM CDT) WBC 6.77 3.80 - 9.90 K/cumm Hgb 14.9 13.0 - 17.5 g/dL [facility] Hct 45.8 38.9 - 50.3 % [facility] Plt 220 150 - 400 K/cumm [facility] MPV 10.1 9.1 - 12.3 fL [facility] RBC 5.18 4.30 - 5.80 M/cumm [facility] MCV 88.4 81.3 - 96.4 fL [facility] MCH 28.8 27.1 - 33.3 pg [facility] MCHC 32.5 32.3 - 35.7 g/dL [facility] RDW CV 14.2 11.1 - 14.9 % [facility] RDW SD 45.6 35.7 - 48.1 fL [facility] NRBC abs 0.00 0.00 - 0.01 K/cumm [facility] Blood 08/01/2024 2:20 PM CDT 08/01/2024 2:25 PM CDT Alden Infante MD LAB BLOOD ORDERABLES Final Result Performing Organization Address [facility] Co de Phone Number [address] [address] * (ABNORMAL) Hemoglobin A1c (08/01/2024 2:20 PM CDT) Pathologist [facility] Hgb A1C 6.3(H) 4.0 - 5.6 % Estimated Average Glucose 134 mg/dL [facility] Comment: The ADA recommends reporting an estimated Average Glucose (eAG) with all Hemoglobin A1c results using the equation derived from a study of 507 normal and diabetic adults. Minority populations were underrepresented and children were not included. (Diabetes Care 31:1571-5888, 2007). The eAG is not equivalent to a fasting glucose. Blood 08/01/2024 2:20 PM CDT 08/01/2024 2:25 PM CDT us Alden Infante MD LAB BLOOD ORDERABLES Final Result [facility] [address] [facility] Department [place] [address] * Lipid panel (08/01/2024 2:20 PM CDT) Cholesterol 166 30 - 199 mg/dL Comment: Interpretive Data Ages < or = 19 years Acceptable: <170 mg/dL Borderline high: 170-199 mg/dL High: >or= 200 mg/dL Ages > or = 20 years Desirable: <200 mg/dL Borderline high: 200-239 mg/dL High: >or= 240 mg/dL Literature References: 1. Expert Panel on Integrated Guidelines for Cardiovascular Health and Risk Reduction in Children and Adolescents. Pediatrics 2011;128:S213 2. NCEP Expert Panel. Circulation 2004;110:227 Current Interpretive Data was last revised on 2017. Triglycerides 66 <=149 mg/dL [facility] Comment: Interpretive Data Ages < or = 9 years Acceptable: <75 mg/dL Borderline high: 75-99 mg/dL High: >or= 100 mg/dL Ages 10 to 20 years Acceptable: <90 mg/dL Borderline high: 90-129 mg/dL High: >or= 130 mg/dL Ages > or = 20 years Desirable: <150 mg/dL Borderline high: 150-199 mg/dL High: 200-499 mg/dL Very high: >or= 499 mg/dL Literature References: 1. Expert Panel on Integrated Guidelines for Cardiovascular Health and Risk Reduction in Children and Adolescents. Pediatrics 2011;128:S213 2. NCEP Expert Panel. Circulation 2004;110:227 Current Interpretive Data was last revised on 2017. HDL 47 >=40 mg/dL [facility] [place] Comment: Interpretive Data Ages < or = 19 years Acceptable: >45 mg/dL Borderline low: 40-45 mg/dL Low: <40 mg/dL Ages > or = 20 years Desirable: >or= 60 mg/dL Low: <40 mg/dL Literature References: 1. Expert Panel on Integrated Guidelines for Cardiovascular Health and Risk Reduction in Children and Adolescents. Pediatrics 2011;128:S213 2. NCEP Expert Panel. Circulation 2004;110:227 Current Interpretive Data was last revised on 2017. LDL, calculated 106 <=129 mg/dL [facility] Comment: Interpretive Data Ages < or = 19 years Acceptable: <110 mg/dL Borderline high: 110-129 mg/dL High: >or= 130 mg/dL Ages > or = 20 years Optimal: <100 mg/dL Near optimal: 100-129 mg/dL Borderline high: 130-159 mg/dL High: >160 mg/dL Calculated using the Blaise LDL-C estimating equation. This equation was implemented on 2023. Prior to this date LDL-C was estimated using the Friedewald equation. Literature References: 1. Expert Panel on Integrated Guidelines for Cardiovascular Health and Risk Reduction in Children and Adolescents. Pediatrics 2011;128:S213 2. NCEP Expert Panel. Circulation 2004;110:227 3. Blaise De La Cruz et al. PATY Cardiol. 2020 August 18;5(5):540-548. doi: 10.1001/jamacardio.2020.0013 Current Interpretive Data was last revised on 2023. Non-HDL Cholesterol 119 mg/dL [facility] Comment: Interpretive Data Ages < or = 19 years Acceptable: <120 mg/dL Borderline high: 120-144 mg/dL High: >145 mg/dL Ages > or = 20 years When triglycerides are >200 mg/dL, Non-HDL cholesterol is a secondary target of therapy with treatment goals that are 30 mg/dL greater than the LDL cholesterol target. Literature References: 1. Expert Panel on Integrated Guidelines for Cardiovascular Health and Risk Reduction in Children and Adolescents. Pediatrics 2011;128:S213 2. NCEP Expert Panel. Circulation 2004;110:227 Current Interpretive Data was last revised on 2017. Chol/HDL ratio 4 [facility] Blood 08/01/2024 2:20 PM CDT 08/01/2024 2:25 PM CDT us Alden Infante MD LAB BLOOD ORDERABLES Final Result Performing Organization Address City/[facility]/ZIP Co de Phone Number [facility] [address] [facility] [employer] [place] [address] * Comprehensive metabolic panel (08/01/2024 2:20 PM CDT) Sodium 139 135 - 145 mmol/L Potassium, pl 4.3 3.3 - 4.9 mmol/L [facility] Chloride 104 97 - 110 mmol/L [facility] CO2 27 22 - 32 mmol/L [facility] Anion gap 8 2 - 15 mmol/L [facility] BUN 18 6 - 25 mg/dL [facility] Creatinine 0.99 0.80 - 1.30 mg/dL [facility] Glucose 96 70 - 199 mg/dL [facility] Comment: Interpretive Data Fasting glucose >/= 126 mg/dl is diagnostic for diabetes. Fasting is defined as no caloric intake for at least 8 hours. Fasting glucose between 100 mg/dl to 125 mg/dl is diagnostic of prediabetes. In a patient with classic symptoms of hyperglycemia or hyperglycemic crisis, a random glucose >/= 200 mg/dl is diagnostic for diabetes. In the absence of unequivocal hyperglycemia, results should be confirmed by repeat testing. The classification and Diagnosis of Diabetes Diabetes Care 202; 46: S19-S40. Current interpretive data was last revised 2022. Calcium 9.6 8.5 - 10.3 mg/dL [facility] Bilirubin, total 0.9 0.1 - 1.2 mg/dL [facility] Protein, pl 7.1 6.5 - 8.5 g/dL [facility] Albumin 4.1 3.5 - 5.0 g/dL [facility] Alk phos 88 40 - 130 Units/L [facility] ALT 18 7 - 55 Units/L [facility] AST 22 10 - 50 Units/L [facility] Blood 08/01/2024 2:20 PM CDT 08/01/2024 2:25 PM CDT us Alden Infante MD LAB BLOOD ORDERABLES Final Result Performing Organization Address City/[facility]/ZIP Co de Phone Number [facility] [address] [facility] Department [place] [address] * PSA screen (02/24/2024 11:58 AM NEURO OPHTHALMOLOGIST) PSA-Total 0.50 <=5.40 ng/mL Comment: Interpretive Data AGE SEX REFERENCE INTERVAL 0 minutes-150 years Female None 0 minutes-49 years Male None 50-59 years Male 0-3.90 60-69 years Male 0-5.40 70-79 years Male 0-6.20 80-150 years Male 0-6.20 The Muna PSA Total assay procedure was used. Results from different manufacturers or methods may not be comparable. Serial testing should be performed using the same method. Current interpretive data last revised 21. Blood 02/24/2024 11:5 8 AM NEURO OPHTHALMOLOGIST 02/24/2024 12:20 PM NEURO OPHTHALMOLOGIST us Hank Mata MD LAB BLOOD ORDERABLES Final Res ult [facility] Department [place] [address] * CT Abdomen WO Contrast (03/31/2021 8:12 AM NEURO OPHTHALMOLOGIST) Anatomical Region Laterality Modality Body N/A Computed Tomogra phy 03/31/2021 9:38 AM NEURO OPHTHALMOLOGIST Narrative 03/31/2021 9:52 AM NEURO OPHTHALMOLOGIST EXAM DESCRIPTION: CT ABDOMEN WO CONTRAST REASON FOR STUDY: Abdominal pain, acute (Ped 0-18y) IP- ICU Upper epigastric pain x 1 day Covid + TECHNIQUE: CT scan of the abdomen performed without intravenous and without oral contrast using helical scanning technique. Reconstructed coronal and sagittal MPR images reviewed. All images stored on PACS. Automated exposure control was used as a dose optimization technique for this examination. COMPARISON: CT chest 03/27/2021, CT abdomen 05/16/2019 and 02/21/2019 FINDINGS: The sensitivity for detection of visceral lesions is diminished without the use of intravenous contrast. LOWER CHEST: Limited views through the lung base demonstrates bibasilar ground-glass infiltrates suspicious for pneumonia including COVID-19 pneumonia. These are minimally more prominent from 03/27/2021 this could be exaggerated by some motion.. LIVER: The liver demonstrates no suspicious lesion. Decreased sensitivity without IV contrast. Again seen are a few small subcentimeter low-density lesions toward the dome too small to further characterize most typical of cysts and also in the left lobe. GALLBLADDER: No stones or inflammatory change. BILE DUCTS: No intrahepatic or extrahepatic ductal dilatation. SPLEEN: Normal size. No focal lesions. PANCREAS: No identified cystic or solid masses. No significant calcifications. No adjacent inflammation or peripancreatic fluid collections. Pancreatic duct not dilated. ADRENALS: There is mild thickening of the bilateral Viri glands, left greater than right. No change from the 2019 exam. Benign etiology favored given longer-term stability. Mild thickening is seen on and even older exam from 2004. KIDNEYS/URINARY TRACT: No identified significant cystic or solid masses. No stones. No hydronephrosis or hydroureter. GI: There is no acute inflammatory change of bowel. Stomach appears normal. No obstruction. PERITONEUM: No ascites or free air. RETROPERITONEUM: No adenopathy. VASCULATURE: No aneurysmal dilatation. Musculoskeletal: Moderate spondylosis lumbar spine. Levoconvex curvature. Grade 1 anterolisthesis L4 on L5. IMPRESSION: 1. There are bibasilar opacities indicative of multifocal pneumonia as was previously seen. Findings appear minimally more prominent than the recent exam, though motion may exaggerate these findings. 2. There is no acute inflammatory change of the abdomen. No bowel obstruction or inflammatory change of bowel. 3. Low-density lesions of the liver are again seen most compatible with small cysts. 4. Bilateral adrenal gland thickening is again seen. Longer term stability favors benign etiology. THIS IS AN ELECTRONICALLY VERIFIED FINAL REPORT 03/31/2021 9:52 AM - Electronically signed by Abad Will M.D. MJ: DELMAR Report ID: [id number] Reading Location: [id number] Procedure Note Abad Will MD - 03/31/2021 EXAM DESCRIPTION: CT ABDOMEN WO CONTRAST REASON FOR STUDY: Abdominal pain, acute (Ped 0-18y) IP- ICU Upper epigastric pain x 1 day Covid + TECHNIQUE: CT scan of the abdomen performed without intravenous andwithout oral contrast using helical scanning technique. Reconstructed coronal and sagittal MPR images reviewed. All images stored on PACS. Automatedexposure control was used as a dose optimization technique for this examination. COMPARISON: CT chest 03/27/2021, CT abdomen 05/16/2019 and 02/21/2019 FINDINGS: The sensitivity for detection of visceral lesions is diminished withoutthe use of intravenous contrast. LOWER CHEST: Limited views through the lung base demonstrates bibasilar ground-glass infiltrates suspicious for pneumonia including COVID-19 pneumonia. These are minimally more prominent from 03/27/2021 this couldbe exaggerated by some motion.. LIVER: The liver demonstrates no suspicious lesion. Decreasedsensitivity without IV contrast. Again seen are a few small subcentimeter low-density lesions toward the dome too small to further characterize most typical of cysts and also in the left lobe. GALLBLADDER: No stones or inflammatory change. BILE DUCTS: No intrahepatic or extrahepatic ductal dilatation. SPLEEN: Normal size. No focal lesions. PANCREAS: No identified cystic or solid masses. No significant calcifications. No adjacent inflammation or peripancreatic fluidcollections. Pancreatic duct not dilated. ADRENALS: There is mild thickening of the bilateral Viri glands, left greater than right. No change from the 2019 exam. Benign etiologyfavored given longer-term stability. Mild thickening is seen on and even olderexam from 2004. KIDNEYS/URINARY TRACT: No identified significant cystic or solid masses.No stones. No hydronephrosis or hydroureter. GI: There is no acute inflammatory change of bowel. Stomach appearsnormal. No obstruction. PERITONEUM: No ascites or free air. RETROPERITONEUM: No adenopathy. VASCULATURE: No aneurysmal dilatation. Musculoskeletal: Moderate spondylosis lumbar spine. Levoconvex curvature. Grade 1 anterolisthesis L4 on L5. IMPRESSION: 1. There are bibasilar opacities indicative of multifocal pneumonia aswas previously seen. Findings appear minimally more prominent than the recent exam, though motion may exaggerate these findings. 2. There is no acute inflammatory change of the abdomen. No bowel obstruction or inflammatory change of bowel. 3. Low-density lesions of the liver are again seen most compatible with small cysts. 4. Bilateral adrenal gland thickening is again seen. Longer termstability favors benign etiology. THIS IS AN ELECTRONICALLY VERIFIED FINAL REPORT 03/31/2021 9:52 AM - Electronically signed by Abad Will M.D. MJ: DELMAR Report ID: [id number] Reading Location: [place] [address] Hosea Reyes MD IMG CT PROCEDURES Final Res ult from Last 3 Months or Most Recently Relevant to Health Maintenance Insurance [employer] MEDICARE ADVANTAGE Advance Directives For more information, please contact: [phone] * LIMITED - No CPR (Latest Code Status on File) Date Activated Date Inactivated Comments 03/26/2021 8:49 PM 04/12/2021 6:47 PM Question Answer Comments Provide aggressive medical m anagement before a full cardiopulmonary arrest occurs. Use antibiotics, IV Fluids, and medical treatment unless specifically selected below: No intubation * LIMITED - No CPR Date Activated Date Inactivated Comments 03/23/2021 9:14 PM 03/26/2021 8:48 PM Question Answer Comments Provide aggressive medical m anagement before a full cardiopulmonary arrest occurs. Use antibiotics, IV Fluids, and medical treatment unless specifically selected below: No intubation Care Teams Checker Relationship Specialty Start Date End Date Alden Infante MD PCP - General 07/06/18
--- OUTSIDE RECORDS SUMMARY | 2024-09-20 10:51 | XMS_ITS ---
Author Organization [facility] Address [address] [facility] [address] [place] [address] Care Team Providers Care Clerical Associate Name Role Phone Alden Infante Primary Care Provider Encounters Encounter Location Date Provider Diagnosis [facility] [address] [facility] [address] [place] [address] 07/20/2024 Alden Infante Plan Of Treatment Next Appt Details Provider Name:Alden loving, 11/17/2024 09:00:00 AM, [address] [facility], [address], [place], [address], Progress Notes * JHOANA KYLE EDOB: (69 yo M)Acc No.[id number]:07/20/2024 Progress Notes Patient: Mima LAND JHOANA Yusuf Provider: Kathryn Infante M.D. :1955 A ge:69 Y S ex:Male Date:07/20/2024 Address:[address] [place], [place] [id number] Subjective: * Chief Complaints: * * Medical History: Objective: * Vitals: Assessment: Plan: * Treatment: * * Electronic signature of Ariel Infante MD on 09/20/2024 at 11:50 AM EDT Sign off status: Pending * Provider: Kathryn Infante M.D. Date: 0 07/20/2024 Generated for Norman rivera/Nabor/eTransmitting on: 0 09/20/2024 11:50 AM EDT
--- OUTSIDE RECORDS SUMMARY | 2024-09-20 10:51 | XMS_ITS ---
Author Organization 1 OF Mark chavez DPM [facility] Address [address] [place] [address] Care Team Providers Care Bolt Machine Operator Name Role Phone Shaikh HARLAN, Alden Primary Care Provider Katina Hassan Unavailable [phone] REASON FOR VISIT DFC (Diabetic foot care) Encounters Encounter Location Date Provider Diagnosis 1 OF Mark Edwards DPM [facility] [address] [place] [address] 09/15/2024 Katina Gallagher Plan Of Treatment Next Appt Details Provider Name:Katina Gallagher, 10/17/2024 08:10:00 AM, [address], [address], [place], [address], Progress Notes * Kris SALASDOB:1955 (69 yo M)Acc No.[id number]:09/15/2024 Progress Note Patient: Kris OCAMPO Provider: Delta Gallagher DPM :1955 A ge:69 Y S ex:Male Date:09/15/2024 Address:[address] [place] [address], [facility] Pcp:Alden Infante MD Subjective: * Chief Complaints: * 1 . DFC (Diabetic foot care). * Medical History: Objective: * Vitals: Assessment: Plan: * Treatment: * Images: * Electronic signature of Germania Gallagher DPM on 09/20/2024 at 10:50 AM CDT Sign off status: Pending * Provider: Delta Gallagher, DPM Date: 0 09/15/2024 Generated for Norman rivera/Nabor/Kiara on: 0 09/20/2024 10:50 AM CDT
--- OUTSIDE RECORDS SUMMARY | 2024-09-20 10:51 | XMS_ITS | Clinical Summary ---
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 Pt ok with bipap, wishes to be DNR if symptoms worsen. Placed on decadron and remdesivir. Ok with pulmonary consult Primary hypertension 03/23/2021 Assessment & Plan (03/23/2021 9:09 PM CAR USHER): Cont home meds, monitor Obesity 03/23/2021 Assessment & Plan (03/23/2021 9:10 PM CAR USHER): Increases risk from covid Encounters Date Type Department Care Team Description 08/01/2024 2:05 PM CDT Lab [facility] Lab [address] [place] [id number] from Last 3 Months Surgical History Surgery Date Site/Laterality Comments PROSTATE SURGERY Medical History Medical History Date Comments Hypertension Cancer (HCC) Social History Tobacco Use Types Packs/Day Years Used Date Smoking Tobacco: Never Alcohol Use Standard Drinks/Week Comments Never 0 (1 standard drink = 0.6 oz pur e alcohol) Sex and Gender Information Value Date Recorded Sex Assigned at Not on file Legal Sex Male 4:52 AM CAR USHER Gender Identity Not on file Sexual Orientation Not on file Obstetrics History Last Filed Vital Signs Vital Sign Reading Time Taken Comments Blood Pressure 132/91 04/12/2021 8:05 AM CAR USHER Pulse 100 04/12/2021 10:25 AM CAR USHER Temperature 36.4 C (97.6 F) 04/12/2021 8:05 AM CAR USHER Respiratory Rate 28 04/12/2021 8:30 AM CAR USHER Oxygen Saturation 90% 04/12/2021 11:54 AM CAR USHER Inhaled Oxygen Concentration - - Weight 99.9 kg (220 lb 3.8 oz) 04/06/2021 6:15 AM CAR USHER Height 170.2 cm (5' 7) 03/23/2021 3:05 PM CAR USHER Body Mass Index 34.49 03/23/2021 3:05 PM CAR USHER Plan of Treatment Health Maintenance Due Date Last Done Comments Colon Cancer Screening-Colonoscopy 1955 Depression Screening 1955 Hepatitis C Screening 1954 DTaP/Tdap/Td Vaccine (1 - Tdap) 1965 Hepatitis B Screening 1972 Pneumococcal vaccine 65+ (1 of 1 - PCV) 2004 Zoster Vaccine (1 of 2) 2004 Well Visit 65+ 07/14/2019 Fall Risk Assessment 04/12/2022 04/12/2021 Influenza Vaccine (Season Ended) 2024 01/08/20 19, 02/05/2017 Prostate Cancer Screening-PSA 02/23/2026, 09/22/2023, 05/15/2023, Additional history exists Abdominal Aortic Aneurysm (A AA) Screen Completed 10/16/2022, 03/31/2021, 05/16/2019, Additional history exists Procedures Procedure Name Priority Date/Time Associated Diagnosis Comments EGFR Routine 08/01/2024 2:20 PM CDT DIFFERENTIAL AUTO Routine 08/01/2024 2:2 0 PM CDT LIPID PANEL Routine 08/01/2024 2:20 PM CDT CBC WITH AUTO DIFFERENTIAL Routine 08/01/2024 2:20 PM CDT HEMOGLOBIN A1C Routine 08/01/2024 2:20 PM CDT COMPREHENSIVE METABOLIC PANEL Routine 08/01/2024 2:20 PM CDT PSA SCREEN Routine 02/24/2024 11:[address] ABDOMEN WO CONTRAST IP Routine 03/31/2021 8:12 AM CAR USHER from Last 3 Months or Most Recently [...] of Race in Diagnosing Kidney Disease, JASN 202). The CKD-EPI equation should not be used for patients with unstable renal function and has not been validated in children and those over 70. Current interpretive data was last reviewed 2021. Blood 08/01/2024 2:20 PM CDT 08/01/2024 2:25 PM CDT us Alden Infante MD LAB BLOOD ORDERABLES Final Result [place] [id number] [facility] Department [place] [address] * Differential, auto (08/01/2024 2:20 PM CDT) Pathologist [facility] Neutrophil abs 3.19 1.50 - 6.50 K/cumm Imm gran abs 0.01 0.00 - 0.10 K/cumm [facility] Lymphocyte abs 2.66 0.80 - 3.30 K/cumm [facility] Monocyte abs 0.54 0.20 - 0.80 K/cumm [facility] Eosinophil abs 0.33 0.00 - 0.50 K/cumm [facility] Basophil abs 0.04 0.00 - 0.10 K/cumm [facility] Neutrophil pct 47.1 % [facility] Comment: Interpretive Data Percent cell count reference ranges are not reported, since discordance with absolute values may lead to misinterpretation of CBC data. Current Interpretive Data was last revised on 2017. Imm gran pct 0.1 % [facility] Comment: Interpretive Data Percent cell count reference ranges are not reported, since discordance with absolute values may lead to misinterpretation of CBC data. Current Interpretive Data was last revised on 2017. Lymphocyte pct 39.3 % [facility] Comment: Interpretive Data Percent cell count reference ranges are not reported, since discordance with absolute values may lead to misinterpretation of CBC data. Current Interpretive Data was last revised on 2017. Monocyte pct 8.0 % [facility] Comment: Interpretive Data Percent cell count reference ranges are not reported, since discordance with absolute values may lead to misinterpretation of CBC data. Current Interpretive Data was last revised on 2017. Eosinophil pct 4.9 % [facility] Comment: Interpretive Data Percent cell count reference ranges are not reported, since discordance with absolute values may lead to misinterpretation of CBC data. Current Interpretive Data was last revised on 2017. Basophil pct 0.6 % [facility] Comment: Interpretive Data Percent cell count reference ranges are not reported, since discordance with absolute values may lead to misinterpretation of CBC data. Current Interpretive Data was last revised on 2017. Blood 08/01/2024 2:20 PM CDT 08/01/2024 2:25 PM CDT Alden Infante MD LAB BLOOD ORDERABLES Final Result [facility] [address] [facility] Department [place] [address] * CBC with auto differential (08/01/2024 2:20 PM CDT) WBC 6.77 3.80 - 9.90 K/cumm Hgb 14.9 13.0 - 17.5 g/dL [facility] Hct 45.8 38.9 - 50.3 % [facility] Plt 220 150 - 400 K/cumm [facility] MPV 10.1 9.1 - 12.3 fL [facility] RBC 5.18 4.30 - 5.80 M/cumm [facility] MCV 88.4 81.3 - 96.4 fL [facility] MCH 28.8 27.1 - 33.3 pg [facility] MCHC 32.5 32.3 - 35.7 g/dL [facility] RDW CV 14.2 11.1 - 14.9 % [facility] RDW SD 45.6 35.7 - 48.1 fL [facility] NRBC abs 0.00 0.00 - 0.01 K/cumm [facility] Blood 08/01/2024 2:20 PM CDT 08/01/2024 2:25 PM CDT Result [facility] Alden Infante MD LAB BLOOD ORDERABLES Final Result Performing Organization Address [facility] Phone Number [address] [address] * (ABNORMAL) Hemoglobin A1c (08/01/2024 2:20 PM CDT) Hgb A1C 6.3(H) 4.0 - 5.6 % Estimated Average Glucose 134 mg/dL [facility] Comment: The ADA recommends reporting an estimated Average Glucose (eAG) with all Hemoglobin A1c results using the equation derived from a study of 507 normal and diabetic adults. Minority populations were underrepresented and children were not included. (Diabetes Care 31:4509-4154, 2008). The eAG is not equivalent to a fasting glucose. Blood 08/01/2024 2:20 PM CDT 08/01/2024 2:25 PM CDT Result [facility] Alden Infante MD LAB BLOOD ORDERABLES Final Result Performing Organization Address [facility] Phone Number [address] [address] * Lipid panel (08/01/2024 2:20 PM CDT) Pathologist [facility] Cholesterol 166 30 - 199 mg/dL Comment: [...] on 2017. HDL 47 >=40 mg/dL [facility] Comment: Interpretive Data Ages < [...] revised on 2023. Non-HDL Cholesterol 119 mg/dL [facility] Comment: Interpretive Data Ages < or = [...] last revised on 2017. Chol/HDL ratio 4 [facility] Blood 08/01/2024 2:20 PM CDT 08/01/2024 2:25 PM CDT Alden Infante MD LAB BLOOD ORDERABLES Final Result [facility] [address] [facility] Department [place] [address] * Comprehensive metabolic panel (08/01/2024 2:20 PM CDT) Sodium 139 135 - 145 mmol/L Potassium, pl 4.3 3.3 - 4.9 mmol/L [facility] Chloride 104 97 - 110 mmol/L [facility] CO2 27 22 - 32 mmol/L [facility] Anion gap 8 2 - 15 mmol/L [facility] BUN 18 6 - 25 mg/dL [facility] Creatinine 0.99 0.80 - 1.30 mg/dL [facility] Glucose 96 70 - 199 mg/dL [facility] Comment: Interpretive Data Fasting glucose >/= 126 [...] classification and Diagnosis of Diabetes Diabetes Care 2021; 46: S19-S40. Current interpretive data was last revised 2022. Calcium 9.6 8.5 - 10.3 mg/dL [facility] Bilirubin, total 0.9 0.1 - 1.2 mg/dL [facility] Protein, pl 7.1 6.5 - 8.5 g/dL [facility] Albumin 4.1 3.5 - 5.0 g/dL [facility] Alk phos 88 40 - 130 Units/L [facility] ALT 18 7 - 55 Units/L [facility] AST 22 10 - 50 Units/L [facility] Blood 08/01/2024 2:20 PM CDT 08/01/2024 2:25 PM CDT Alden Infante MD LAB BLOOD ORDERABLES Final Result Performing Organization Address [facility] de Phone Number [address] [place] [address] * PSA screen (02/24/2024 11:58 AM CAR USHER) PSA-Total 0.50 <=5.40 ng/mL Comment: Interpretive Data [...] revised 21. Blood 02/24/2024 11:5 8 AM CAR USHER 02/24/2024 12:20 PM CAR USHER Hank Mata MD LAB BLOOD ORDERABLES Final Res ult Performing Organization Address [facility] Co de Phone Number [address] [place] [address] * CT Abdomen WO Contrast (03/31/2021 8:12 AM CAR USHER) Anatomical Region Laterality Modality Body N/A Computed Tomogra phy 03/31/2021 9:38 AM CAR USHER Narrative 03/31/2021 9:52 AM CAR USHER EXAM DESCRIPTION: CT ABDOMEN WO CONTRAST REASON [...] Abad Will M.D. MJ: DELMAR Report ID: [id number] Reading Location: [place] [address] Procedure Note Abad Will MD - 03/31/2021 [...] Abad Will M.D. MJ: DELMAR Report ID: [id number] Reading Location: [place] [address] Hosea Reyes MD IMG CT PROCEDURES Final Res ult from Last 3 Months or Most Recently Relevant to Health Maintenance Insurance [facility] Address: [facility] [address] [place] [address] [facility] Address: [address] [address] [place] [address] [facility] Address: [address] [address] [place] [address] Advance Directives For more information, please contact: [phone] * LIMITED - No CPR (Latest Code [...] specifically selected below: No intubation Care Teams Delivery Person Relationship Specialty Start Date End Date Alden Infante MD PCP - General 07/06/18
[2024-09-20 10:56] LABS: Basophils Percent Auto 0.6 % (0.2-1.2); Eosinophils Absolute Auto 0.3 K/mm3 (0-0.3); Eosinophils Percent Auto 4.1 % (0-4.4); Hematocrit 46.9 % (42.0-52.0); Immature Granulocyte Absolute 0.01 K/mm3 (0.00-0.031); Immature Granulocyte Percent A 0.2 % (0-0.5); Lymphocytes Absolute Auto 2.17 K/mm3 (0.9-3.2); Mean Corpuscular Hemoglobin 28.4 pg (26-34); Mean Corpuscular Volume 88.7 fl (80-100); Mean Platelet Volume 9.8 fl (7.4-10.4); Monocytes Absolute Auto 0.5 K/mm3 (0.1-0.6); Monocytes Percent Auto 7.5 % (2.6-8.5); Neutrophils Absolute Auto 3.4 K/mm3 (1.3-6.7); Neutrophils Percent Auto 53.6 % (45.5-73.1); Platelet Count Result 229 k/mm3 (150-375); Red Blood Count 5.29 M/mm3 (4.6-6.20); White Blood Count 6.4 K/mm3 (4.5-10.0)
--- NOTE | 2024-09-20 11:00 | ECG_ITS ---
Test Date: 2024-09-20 11:17:37 Measurements Intervals [place] Rate: 59 P: 50 [place]: 166 QRS: 39 QRSD: 100 T: 32 QT: 408 QTc: 406 Interpretive Statements SINUS BRADYCARDIA EARLY PRECORDIAL R/S TRANSITION MINIMAL Q WAVES- ANTEROLAT/INF LEADS BASELINE ARTIFACT- I, III, AVR, AVL, AVF, V1 BORDERLINE ECG No previous ECG available for comparison Electronically Signed On 09-20-2024 12:01:00 CDT by Sander Mijares D.O.
[2024-09-20 11:05] LABS: Alanine Aminotransferase 40 U/L (6-50); Albumin Level 4.3 g/dL (3.5-5.1); Alkaline Phosphatase 81 U/L (38-126); Anion Gap 11 mmol/L (4-12); Aspartate Amino Transferase 29 U/L (17-59); Bilirubin,Total 0.7 mg/dL (0.2-1.3); Blood Urea Nitrogen 15 mg/dL (9-20); Calcium 9.3 mg/dL (8.4-10.2); Carbon Dioxide 24 mmol/L (22-30); Chloride 106 mmol/L (98-107); Estimated CRCL calculation 86 ml/min; Estimated Glomerular Filt Rate > 60; Glucose 105 mg/dL (65-110); Potassium 3.7 mmol/L (3.4-5.0); Sodium 141 mmol/L (137-145); Total Protein 7.3 g/dL (6.3-8.2)
--- NOTE | 2024-09-20 11:20 | ED_ITS ---
HPI - Weakness General Chief complaint: Weakness Stated complaint: BODY ACHES FOR 2WKS Time Seen by Provider: 09/20/24 11:00 Source: patient Mode of arrival: ambulatory Limitations: no limitations History of Present Illness HPI Narrative: This is a 69 year old male that presents to the ER for generalized weakness. Ongoing over the last 2 weeks. Reports diffuse pain/myalgias. Reports some shortness of breath and cough. Denies fever, chest pain, abdominal pain, vomiting, dysuria. Related Data Allergies Allergy/AdvReac Type Severity Reaction Status Date / Time No Known Allergies Allergy Verified 09/20/24 10:28 Review of Systems 2 Review of Systems: All systems reviewed & are unremarkable except as noted in HPI and below PMFSH Past Medical History Medical History (Updated 09/20/24 @ 13:32 by Della Dolan PA-C) History of hypertension Surgical History Surgical History (Updated 09/20/24 @ 11:40 by Della Dolan PA-C) History of prostatectomy Social History Social History (Updated 09/20/24 @ 11:40 by Della Dolan PA-C) Smoking status: Never smoker Exam 2 Narrative: GENERAL: Well-appearing, well-nourished, and in no acute distress. HEAD: Normocephalic, atraumatic. EYES: EOMI. ENT: Nares clear, no rhinorrhea or epistaxis. Mucous membranes moist. Oropharynx without tonsillar hypertrophy exudate or other lesions. Bilateral TMs pearly avila non-bulging NECK: Supple. No adenopathy or masses. CHEST: Clear to auscultation. No respiratory distress. Rales in the left lower lobe. No wheezes or rhonchi HEART: Regular rate and rhythm. No murmur heard. Normal peripheral pulses. ABDOMEN: Soft, nontender, nondistended, normal active bowel sounds. EXTREMITIES: Normal range of motion. No edema. SKIN: Warm, dry, no rash. NEURO: No focal deficits. Alert and oriented x3. PSYCH: Normal mood and affect Course Course Emergency Course: Patient and family updated on workup and agree with plan of care Vital Signs Vital signs: Vital Signs Temperature 97.9 F 09/20/24 10:31 Pulse Rate 58 L 09/20/24 10:31 Respiratory Rate 16 09/20/24 10:31 Blood Pressure 134/75 09/20/24 10:31 Pulse Oximetry 97 09/20/24 10:31 Oxygen Delivery Room Air 09/20/24 10:31 Temperature 97.7 F 09/20/24 13:00 Pulse Rate 62 09/20/24 13:00 Respiratory Rate 18 09/20/24 13:00 Blood Pressure 162/98 H 09/20/24 13:00 Pulse Oximetry 97 09/20/24 13:00 Oxygen Delivery Room Air 09/20/24 10:31 MDM - Weakness MDM Narrative Medical decision making narrative: Patient presents the emergency department for generalized weakness, shortness of breath, cough. He is afebrile and nontoxic appearing. His vitals are stable. CBC and metabolic panel are normal. Urine without evidence of infection. TSH is normal. Influenza, RSV and COVID screens are negative. BNP is not elevated. Chest x-ray shows mixed bilateral interstitial and airspace disease. Likely pneumonia or interstitial fibrosis. Patient will be started on oral antibiotics. Given information for follow-up with pulmonology. They were given warnings to return to the ER Differential Diagnosis Differential diagnosis: Likely anemia, dehydration and other (Pneumonia, CHF, interstitial lung disease, electrolyte derangement, arrhythmia) Lab Data Attestation: I reviewed the patient's lab results. 09/20/24 10:50 09/20/24 10:50 Labs: Lab Results 09/20/24 09/20/24 09/20/24 Range/Units 10:50 11:17 11:55 WBC 6.4 (4.5-10.0) K/mm3 RBC 5.29 (4.6-6.20) M/mm3 Hgb 15.0 (14.0-18.0) g/dL Hct 46.9 (42.0-52.0) % MCV 88.7 (80-100) fl MCH 28.4 (26-34) pg MCHC 32.0 (32-36) g/dl RDW 14.0 (11.5-14.5) % Plt Count 229 (150-375) k/mm3 MPV 9.8 (7.4-10.4) fl Immature Gran % (Auto) 0.2 (0-0.5) % Neut % (Auto) 53.6 (45.5-73.1) % Lymph % (Auto) 34.0 (18.3-44.2) % M[place]ick % (Auto) 7.5 (2.6-8.5) % Eos % (Auto) 4.1 (0-4.4) % Baso % (Auto) 0.6 (0.2-1.2) % Lymph # (Auto) 2.17 (0.9-3.2) K/mm3 M[place]ormick # (Auto) 0.5 (0.1-0.6) K/mm3 Eos # (Auto) 0.3 (0-0.3) K/mm3 Baso # (Auto) 0.0 (0.0-0.1) K/mm3 Abs Immat Gran (auto) 0.01 (0.00-0.031) K/mm3 Absolute Neuts (auto) 3.4 (1.3-6.7) K/mm3 Absolute Nucleated RBC 0.000 (0.0-0.012) K/mm3 Nucleated RBC % 0.0 (0.0-0.2) % PT 13.4 (11.1-14.7) Seconds INR 1.0 APTT 24.9 (22.3-36.8) Seconds Sodium 141 (137-145) mmol/L Potassium 3.7 (3.4-5.0) mmol/L Chloride 106 (98-107) mmol/L Carbon Dioxide 24 (22-30) mmol/L Anion Gap 11 (4-12) mmol/L BUN 15 (9-20) mg/dL Creatinine 0.86 (0.7-1.3) mg/dL Estim Creat Clear Calc 86 ml/min Estimated GFR > 60 (59 - ) Glucose 105 (65-110) mg/dL Calcium 9.3 (8.4-10.2) mg/dL Magnesium 2.2 (1.6-2.3) mg/dL Total Bilirubin 0.7 (0.2-1.3) mg/dL AST 29 (17-59) U/L ALT 40 (6-50) U/L Alkaline Phosphatase 81 (38-126) U/L Troponin I < 0.012 (0.000-0.034) ng/mL NT-Pro-B Natriuret Pep < 20 (19.9-100) pg/mL Total Protein 7.3 (6.3-8.2) g/dL Albumin 4.3 (3.5-5.1) g/dL TSH (Reflex) 1.400 (0.465-4.68) uIU/mL Urine Color Yellow (Yellow) Urine Appearance Clear (Clear) Urine pH 6.0 (5.0-9.0) Ur Specific [place] 1.019 (1.001-1.035) Urine Protein Negative (Negative) mg/dL Urine Glucose (UA) Negative (Negative) mg/dL Urine Ketones Negative (Negative) mg/dL Ur Blood (Man) Negative (Negative) Urine Nitrate Negative (Negative) Urine Bilirubin Negative (Negative) Urine Urobilinogen 1.0 (<2.0) mg/dL Leukocyte Esterase Rfl Negative (Negative) IZZY/UL Influenza A (RT-PCR) Negative (Negative) Influenza B (RT-PCR) Negative (Negative) RSV (RT-PCR) Negative (Negative) SARS-CoV-2 RNA (RT-PCR) Negative (Negative) Imaging Data Radiologist's impression: ITS Impressions Chest X-Ray 09/20/24 12:27 Impression: 1: Mixed bilateral interstitial and airspace disease. Differential diagnosis includes edema, pneumonia and/or interstitial fibrosis. ECG Data EKG #1: ECG completion date: 09/20/24 EKG Interpretation: bradycardia, sinus rhythm, no ST changes and normal QT Critical Care Time Critical Care Time Critical Care Time: No Discharge Plan Discharge Clinical Impression: Generalized weakness Community acquired pneumonia Qualifiers: Laterality: unspecified laterality Qualified Code(s): J18.9 - Pneumonia, unspecified organism Patient Disposition: Home Condition: Stable Instructions: Antibiotic Form, Community Acquired Pneumonia (ED), Weakness (ED) Additional Instructions: Return to the emergency department if you experience fever, chest pain, shortness of breath, abdominal pain with nausea and vomiting, weakness, numbness, or any other symptoms that are concerning to you. Take oral antibiotics as prescribed Follow up with heat curer Patient Language: Macedonian Prescriptions: New azithromycin 250 mg tablet See Rx Instructions .ROUTE .COMPLEX Qty: 6 0RF Rx Instructions: For 250 mg dose pack: take 500 mg today (day 1), then 250 mg for 4 days (days 2-5) amoxicillin 875 mg tablet 875 mg PO Q12H 5 Days Qty: 10 0RF Follow-up/Referrals: ,Alden Huang MD [Primary Care Provider] - Abad Ni MD [Physician] -
[2024-09-20 11:23] VITALS: BP 140/101; PULSE 62; RESP 18; O2SAT 97
[2024-09-20 11:24] LABS: Add Urine Microscopic? NO; Appearance Urine Clear (Clear); Bilirubin Urine Negative (Negative); Blood Urine Negative (Negative); Color Urine Yellow (Yellow); Glucose Urine UA Negative (Negative); Ketones Urine Negative (Negative); Leukocyte Esterase Ur Negative LEU/UL (Negative); Nitrate Urine Negative (Negative); Protein Urine Negative (Negative); Specific Grav Ur 1.019 (1.001-1.035)
[2024-09-20 11:31] VITALS: BP 148/97; PULSE 64; RESP 18; TEMP 36.5; O2SAT 98
[2024-09-20 11:32] LABS: Influenza A QL RT-PCR Negative (Negative); Influenza B QL RT-PCR Negative (Negative); RSV RNA, RT-PCR Negative (Negative); SARS-CoV-2 RNA PCR Negative (Negative)
--- OUTSIDE RECORDS SUMMARY | 2024-09-20 11:43 | XMS_ITS | Referral Summary ---
Author Organization [facility] Address [address] [place] [address] Care Team Providers Care Ethics Officer Name Role Phone Alden Infante MD Primary Care Provider [phone]- [phone] Encounters Date Type Department Care Team Description 08/01/2024 2:05 PM CDT Lab [facility] [address], [place] [id number] from Last 3 Months Allergies No known [...] mg tablet Take 25 mg by mouth operations agent before breakfast Active HYDROcodone-howard taminophen (NORCO) 5-325 mg per tablet Take 1 tablet by mouth every 6 (six) hours as needed 8 Active Active Problems Problem Noted Date Diagnosed Date Shortness of breath 03/23/2021 COVID 03/23/2021 Assessment & Plan (03/23/2021 9:08 PM SALES CENTER MANAGER): Symptomatic treatment, supportive care Acute respiratory failure with hypoxia Assessment & Plan (03/23/2021 9:09 PM SALES CENTER MANAGER): Due to covid. Pt ok with bipap, wishes to be DNR if symptoms worsen. Placed on decadron and remdesivir. Ok with pulmonary consult Primary hypertension 03/23/2021 Assessment & Plan (03/23/2021 9:09 PM SALES CENTER MANAGER): Cont home meds, monitor Obesity 03/23/2021 Assessment & Plan (03/23/2021 9:10 PM SALES CENTER MANAGER): Increases risk from covid Social History Tobacco Use Types Packs/Day Years Used Date Smoking Tobacco: Never Alcohol Use Standard Drinks/Week Comments Never 0 (1 standard drink = 0.6 oz pur e alcohol) Sex and Gender Information Value Date Recorded Sex Assigned at Not on file Legal Sex Male 4:52 AM SALES CENTER MANAGER Gender Identity Not on file Sexual Orientation Not on file Last Filed Vital Signs Vital Sign Reading Time Taken Comments Blood Pressure 132/91 04/12/2021 8:05 AM SALES CENTER MANAGER Pulse 100 04/12/2021 10:25 AM SALES CENTER MANAGER Temperature 36.4 C (97.6 F) 04/12/2021 8:05 AM SALES CENTER MANAGER Respiratory Rate 28 04/12/2021 8:30 AM SALES CENTER MANAGER Oxygen Saturation 90% 04/12/2021 11:54 AM SALES CENTER MANAGER Inhaled Oxygen Concentration - - Weight 99.9 kg (220 lb 3.8 oz) 04/06/2021 6:15 A M SALES CENTER MANAGER Height 170.2 cm (5' 7) 03/23/2021 3:05 PM SALES CENTER MANAGER Body Mass Index 34.49 03/23/2021 3:05 PM SALES CENTER MANAGER Plan of Treatment Not on file Procedures [...] CDT PSA SCREEN Routine 02/24/2024 11:[address] ABDOMEN WO CONTRAST IP Routine 03/31/2021 8:12 AM SALES CENTER MANAGER from Last 3 Months or Most Recently [...] MD LAB BLOOD ORDERABLES Final Result [facility] [address] [facility] [place] [address] * Differential, auto (08/01/2024 2:20 PM CDT) Pathologist [facility] Neutrophil abs 3.19 1.50 - 6.50 K/cumm Imm gran abs 0.01 0.00 - 0.10 K/cumm [facility] Lymphocyte abs 2.66 0.80 - 3.30 K/cumm [facility] Monocyte abs 0.54 0.20 - 0.80 K/cumm [facility] Eosinophil abs 0.33 0.00 - 0.50 K/cumm [facility] Basophil abs 0.04 0.00 - 0.10 K/cumm [facility] Neutrophil pct 47.1 % [facility] Comment: Interpretive Data Percent cell count reference ranges are not reported, since discordance with absolute values may lead to misinterpretation of CBC data. Current Interpretive Data was last revised on 2017. Imm gran pct 0.1 % [facility] Comment: Interpretive Data Percent cell count reference ranges are not reported, since discordance with absolute values may lead to misinterpretation of CBC data. Current Interpretive Data was last revised on 2017. Lymphocyte pct 39.3 % [facility] Comment: Interpretive Data Percent cell count reference ranges are not reported, since discordance with absolute values may lead to misinterpretation of CBC data. Current Interpretive Data was last revised on 2017. Monocyte pct 8.0 % [facility] Comment: Interpretive Data Percent cell count reference ranges are not reported, since discordance with absolute values may lead to misinterpretation of CBC data. Current Interpretive Data was last revised on 2017. Eosinophil pct 4.9 % [facility] Comment: Interpretive Data Percent cell count reference ranges are not reported, since discordance with absolute values may lead to misinterpretation of CBC data. Current Interpretive Data was last revised on 2017. Basophil pct 0.6 % [facility] Comment: Interpretive Data Percent cell count reference ranges are not reported, since discordance with absolute values may lead to misinterpretation of CBC data. Current Interpretive Data was last revised on 2017. Blood 08/01/2024 2:20 PM CDT 08/01/2024 2:25 PM CDT Alden Infante MD LAB BLOOD ORDERABLES Final Result Performing Organization Address City/[facility] Co de Phone Number [facility] [address] [address] * CBC with auto differential (08/01/2024 2:20 PM CDT) WBC 6.77 3.80 - 9.90 K/cumm Hgb 14.9 13.0 - 17.5 g/dL [facility] Hct 45.8 38.9 - 50.3 % [facility] Plt 220 150 - 400 K/cumm [facility] MPV 10.1 9.1 - 12.3 fL [facility] RBC 5.18 4.30 - 5.80 M/cumm [facility] MCV 88.4 81.3 - 96.4 fL [facility] MCH 28.8 27.1 - 33.3 pg [facility] MCHC 32.5 32.3 - 35.7 g/dL [facility] RDW CV 14.2 11.1 - 14.9 % [facility] RDW SD 45.6 35.7 - 48.1 fL [facility] NRBC abs 0.00 0.00 - 0.01 K/cumm [facility] Blood 08/01/2024 2:20 PM CDT 08/01/2024 2:25 PM CDT Alden Infante MD LAB BLOOD ORDERABLES Final Result Performing Organization Address [facility] Co de Phone Number [address] [address] * (ABNORMAL) Hemoglobin A1c (08/01/2024 2:20 PM CDT) Pathologist [facility] Hgb A1C 6.3(H) 4.0 - 5.6 % Estimated Average Glucose 134 mg/dL [facility] Comment: The ADA recommends reporting an estimated Average Glucose (eAG) with all Hemoglobin A1c results using the equation derived from a study of 507 normal and diabetic adults. Minority populations were underrepresented and children were not included. (Diabetes Care 31:7256-7135, 2007). The eAG is not equivalent to a fasting glucose. Blood 08/01/2024 2:20 PM CDT 08/01/2024 2:25 PM CDT us Alden Infante MD LAB BLOOD ORDERABLES Final Result [facility] [address] [facility] Department [place] [address] * Lipid panel (08/01/2024 2:20 PM CDT) [...] BLOOD ORDERABLES Final Result Performing Organization Address City/[facility]/ZIP Co de Phone Number [facility] [address] [facility] [employer] [address] * Comprehensive metabolic panel (08/01/2024 2:20 PM CDT) Sodium 139 135 - 145 mmol/L Potassium, pl 4.3 3.3 - 4.9 mmol/L [facility] Chloride 104 97 - 110 mmol/L [facility] CO2 27 22 - 32 mmol/L [facility] Anion gap 8 2 - 15 mmol/L [facility] BUN 18 6 - 25 mg/dL [facility] Creatinine 0.99 0.80 - 1.30 mg/dL [facility] Glucose 96 70 - 199 mg/dL [facility] Comment: Interpretive Data Fasting glucose >/= [...] 2022. Calcium 9.6 8.5 - 10.3 mg/dL [facility] Bilirubin, total 0.9 0.1 - 1.2 mg/dL [facility] Protein, pl 7.1 6.5 - 8.5 g/dL [facility] Albumin 4.1 3.5 - 5.0 g/dL [facility] Alk phos 88 40 - 130 Units/L [facility] ALT 18 7 - 55 Units/L [facility] AST 22 10 - 50 Units/L [facility] Blood 08/01/2024 2:20 PM CDT 08/01/2024 2:25 PM CDT us Alden Infante MD LAB BLOOD ORDERABLES Final Result Performing Organization Address City/[facility]/ZIP Co de Phone Number [facility] [address] [facility] Department [place] [address] * PSA screen (02/24/2024 11:58 AM SALES CENTER MANAGER) PSA-Total 0.50 <=5.40 ng/mL Comment: Interpretive Data [...] revised 21. Blood 02/24/2024 11:5 8 AM SALES CENTER MANAGER 02/24/2024 12:20 PM SALES CENTER MANAGER us Hank Mata MD LAB BLOOD ORDERABLES Final Res ult [facility] Department [place] [address] * CT Abdomen WO Contrast (03/31/2021 8:12 AM SALES CENTER MANAGER) Anatomical Region Laterality Modality Body N/A Computed Tomogra phy 03/31/2021 9:38 AM SALES CENTER MANAGER Narrative 03/31/2021 9:52 AM SALES CENTER MANAGER EXAM DESCRIPTION: CT ABDOMEN WO CONTRAST REASON [...] Abad Will M.D. MJ: DELMAR Report ID: [id number] Reading Location: [id number] Procedure Note Abad Will MD - 03/31/2021 [...] Abad Will M.D. MJ: DELMAR Report ID: [id number] Reading Location: [place] [address] Hosea Reyes MD IMG CT PROCEDURES Final Res ult from Last 3 Months or Most Recently Relevant to Health Maintenance Insurance [employer] MEDICARE [employer]VANTAGE Advance Directives For more information, please contact: [phone] * LIMITED - No CPR (Latest Code [...] specifically selected below: No intubation Care Teams Ethics Officer Relationship Specialty Start Date End Date Alden Infante MD PCP - General 07/06/18
--- OUTSIDE RECORDS SUMMARY | 2024-09-20 11:43 | XMS_ITS | Clinical Summary ---
Author Organization [facility] Address [address] [place] [address] Care Team Providers Care Solid Waste Collector Name Role Phone Alden Infante MD Primary Care Provider [phone]- [phone] Allergies No known active allergies Medications albuterol [...] mg tablet Take 25 mg by mouth carton maker before breakfast Active HYDROcodone-howard taminophen (NORCO) 5-325 mg per tablet Take 1 tablet by mouth every 6 (six) hours as needed 8 Active Active Problems Problem Noted Date Diagnosed Date Shortness of breath 03/23/2021 COVID 03/23/2021 Assessment & Plan (03/23/2021 9:08 PM FREELANCE COPYWRITER): Symptomatic treatment, supportive care Acute respiratory failure with hypoxia Assessment & Plan (03/23/2021 9:09 PM FREELANCE COPYWRITER): Due to covid. Pt ok with bipap, wishes to be DNR if symptoms worsen. Placed on decadron and remdesivir. Ok with pulmonary consult Primary hypertension 03/23/2021 Assessment & Plan (03/23/2021 9:09 PM FREELANCE COPYWRITER): Cont home meds, monitor Obesity 03/23/2021 Assessment & Plan (03/23/2021 9:10 PM FREELANCE COPYWRITER): Increases risk from covid Encounters Date Type Department Care Team Description 08/01/2024 2:05 PM CDT Lab [facility] Lab [address] [place] [address] from Last 3 Months Surgical History [...] on file Legal Sex Male 4:52 AM FREELANCE COPYWRITER Gender Identity Not on file Sexual Orientation Not on file Obstetrics History Last Filed Vital Signs Vital Sign Reading Time Taken Comments Blood Pressure 132/91 04/12/2021 8:05 AM FREELANCE COPYWRITER Pulse 100 04/12/2021 10:25 AM FREELANCE COPYWRITER Temperature 36.4 C (97.6 F) 04/12/2021 8:05 AM FREELANCE COPYWRITER Respiratory Rate 28 04/12/2021 8:30 AM FREELANCE COPYWRITER Oxygen Saturation 90% 04/12/2021 11:54 AM FREELANCE COPYWRITER Inhaled Oxygen Concentration - - Weight 99.9 kg (220 lb 3.8 oz) 04/06/2021 6:15 AM FREELANCE COPYWRITER Height 170.2 cm (5' 7) 03/23/2021 3:05 PM FREELANCE COPYWRITER Body Mass Index 34.49 03/23/2021 3:05 PM FREELANCE COPYWRITER Plan of Treatment Health Maintenance Due Date [...] CDT PSA SCREEN Routine 02/24/2024 11:[address] ABDOMEN WO CONTRAST IP Routine 03/31/2021 8:12 AM FREELANCE COPYWRITER from Last 3 Months or Most Recently [...] Infante MD LAB BLOOD ORDERABLES Final Result [place] [id number] [facility] Department [place] [address] * Differential, auto (08/01/2024 2:20 PM CDT) Pathologist [facility] Neutrophil abs 3.19 1.50 - 6.50 K/cumm Imm gran abs 0.01 0.00 - 0.10 K/cumm [facility] Lymphocyte abs 2.66 0.80 - 3.30 K/cumm [facility] Monocyte abs 0.54 0.20 - 0.80 K/cumm [facility] Eosinophil abs 0.33 0.00 - 0.50 K/cumm [facility] Basophil abs 0.04 0.00 - 0.10 K/cumm [facility] Neutrophil pct 47.1 % [facility] Comment: Interpretive Data Percent cell count reference ranges are not reported, since discordance with absolute values may lead to misinterpretation of CBC data. Current Interpretive Data was last revised on 2017. Imm gran pct 0.1 % [facility] Comment: Interpretive Data Percent cell count reference ranges are not reported, since discordance with absolute values may lead to misinterpretation of CBC data. Current Interpretive Data was last revised on 2017. Lymphocyte pct 39.3 % [facility] Comment: Interpretive Data Percent cell count reference ranges are not reported, since discordance with absolute values may lead to misinterpretation of CBC data. Current Interpretive Data was last revised on 2017. Monocyte pct 8.0 % [facility] Comment: Interpretive Data Percent cell count reference ranges are not reported, since discordance with absolute values may lead to misinterpretation of CBC data. Current Interpretive Data was last revised on 2017. Eosinophil pct 4.9 % [facility] Comment: Interpretive Data Percent cell count reference ranges are not reported, since discordance with absolute values may lead to misinterpretation of CBC data. Current Interpretive Data was last revised on 2017. Basophil pct 0.6 % [facility] Comment: Interpretive Data Percent cell count reference ranges are not reported, since discordance with absolute values may lead to misinterpretation of CBC data. Current Interpretive Data was last revised on 2017. Blood 08/01/2024 2:20 PM CDT 08/01/2024 2:25 PM CDT Alden Infante MD LAB BLOOD ORDERABLES Final Result [facility] [address] [facility] Department [place] [address] * CBC with auto differential (08/01/2024 2:20 PM CDT) WBC 6.77 3.80 - 9.90 K/cumm Hgb 14.9 13.0 - 17.5 g/dL [facility] Hct 45.8 38.9 - 50.3 % [facility] Plt 220 150 - 400 K/cumm [facility] MPV 10.1 9.1 - 12.3 fL [facility] RBC 5.18 4.30 - 5.80 M/cumm [facility] MCV 88.4 81.3 - 96.4 fL [facility] MCH 28.8 27.1 - 33.3 pg [facility] MCHC 32.5 32.3 - 35.7 g/dL [facility] RDW CV 14.2 11.1 - 14.9 % [facility] RDW SD 45.6 35.7 - 48.1 fL [facility] NRBC abs 0.00 0.00 - 0.01 K/cumm [facility] Blood 08/01/2024 2:20 PM CDT 08/01/2024 2:25 PM CDT Result [facility] Alden Infante MD LAB BLOOD ORDERABLES Final Result Performing Organization Address [facility] Phone Number [address] [address] * (ABNORMAL) Hemoglobin A1c (08/01/2024 2:20 PM CDT) Hgb A1C 6.3(H) 4.0 - 5.6 % Estimated Average Glucose 134 mg/dL [facility] Comment: The ADA recommends reporting an estimated Average Glucose (eAG) with all Hemoglobin A1c results using the equation derived from a study of 507 normal and diabetic adults. Minority populations were underrepresented and children were not included. (Diabetes Care 31:2104-2952, 2008). The eAG is not equivalent to a fasting glucose. Blood 08/01/2024 2:20 PM CDT 08/01/2024 2:25 PM CDT Result [facility] Alden Infante MD LAB BLOOD ORDERABLES Final Result Performing Organization Address [facility] Phone Number [address] [address] * Lipid panel (08/01/2024 2:20 PM CDT) Pathologist [facility] Cholesterol 166 30 - 199 mg/dL Comment: [...] revised on 2023. Non-HDL Cholesterol 119 mg/dL [facility] Comment: Interpretive Data Ages < or = [...] last revised on 2017. Chol/HDL ratio 4 [facility] Blood 08/01/2024 2:20 PM CDT 08/01/2024 2:25 PM CDT Alden Infante MD LAB BLOOD ORDERABLES Final Result [facility] [address] [facility] Department [place] [address] * Comprehensive metabolic panel (08/01/2024 2:20 PM CDT) Sodium 139 135 - 145 mmol/L Potassium, pl 4.3 3.3 - 4.9 mmol/L [facility] Chloride 104 97 - 110 mmol/L [facility] CO2 27 22 - 32 mmol/L [facility] Anion gap 8 2 - 15 mmol/L [facility] BUN 18 6 - 25 mg/dL [facility] Creatinine 0.99 0.80 - 1.30 mg/dL [facility] Glucose 96 70 - 199 mg/dL [facility] Comment: Interpretive Data Fasting glucose >/= [...] 2022. Calcium 9.6 8.5 - 10.3 mg/dL [facility] Bilirubin, total 0.9 0.1 - 1.2 mg/dL [facility] Protein, pl 7.1 6.5 - 8.5 g/dL [facility] Albumin 4.1 3.5 - 5.0 g/dL [facility] Alk phos 88 40 - 130 Units/L [facility] ALT 18 7 - 55 Units/L [facility] AST 22 10 - 50 Units/L [facility] Blood 08/01/2024 2:20 PM CDT 08/01/2024 2:25 PM CDT Alden Infante MD LAB BLOOD ORDERABLES Final Result Performing Organization Address [facility] de Phone Number [address] [employer] [place] [address] * PSA screen (02/24/2024 11:58 AM FREELANCE COPYWRITER) PSA-Total 0.50 <=5.40 ng/mL Comment: Interpretive Data [...] revised 21. Blood 02/24/2024 11:5 8 AM FREELANCE COPYWRITER 02/24/2024 12:20 PM FREELANCE COPYWRITER Hank Mata MD LAB BLOOD ORDERABLES Final Res ult Performing Organization Address [facility] Co de Phone Number [address] [place] [address] * CT Abdomen WO Contrast (03/31/2021 8:12 AM FREELANCE COPYWRITER) Anatomical Region Laterality Modality Body N/A Computed Tomogra phy 03/31/2021 9:38 AM FREELANCE COPYWRITER Narrative 03/31/2021 9:52 AM FREELANCE COPYWRITER EXAM DESCRIPTION: CT ABDOMEN WO CONTRAST REASON [...] Abad Will M.D. MJ: DELMAR Report ID: [id number] Reading Location: [place] [address] Procedure Note Abad Will MD - 03/31/2021 [...] Abad Will M.D. MJ: DELMAR Report ID: [id number] Reading Location: [place] [address] Hosea Reyes MD IMG CT PROCEDURES Final Res ult from Last 3 Months or Most Recently Relevant to Health Maintenance Insurance [facility] MDCR HMO [facility] MEDICARE Address: [facility] [address] [place] [address] [facility] MDCR HMO [facility] MEDIC[facility] Address: [address] [address] [place] [address] [facility] MEDICARE [facility] Address: [address] [address] [place] [address] Advance Directives For more information, please contact: [phone] * LIMITED - No CPR (Latest Code [...] specifically selected below: No intubation Care Teams Solid Waste Collector Relationship Specialty Start Date End Date Alden Infante MD PCP - General 07/06/18
[2024-09-20 12:01] VITALS: BP 164/102; PULSE 65; RESP 21; TEMP 36.6; O2SAT 95
[2024-09-20] MEDS: ACETAMINOPHEN 500 MG TABLET 1000 MG PO (12:06)
[2024-09-20 12:11] LABS: Magnesium 2.2 mg/dL (1.6-2.3)
[2024-09-20 12:22] LABS: Prothrombin Time 13.4 Seconds (11.1-14.7)
[2024-09-20 12:23] LABS: Partial Thromboplastin Time 24.9 Seconds (22.3-36.8)
[2024-09-20 12:25] LABS: NT Pro B Type Natriuretic Pept < 20 pg/mL (19.9-100); Troponin I < 0.012 ng/mL (0.000-0.034)
[2024-09-20 13:00] VITALS: BP 162/98; PULSE 62; RESP 18; TEMP 36.5; O2SAT 97
== END 2024-09-20 13:46 | disposition home or self-care (01) ==
PROVIDERS: Emergency Medicine; Emergency Provider Physician Assistant; PCP Internal Medicine
DX: J18.9 Pneumonia, unspecified organism (principal); R53.1 Weakness; Z20.822 Contact with and (suspected) exposure to COVID-19
CPT/HCPCS: 36415; 71046; 80053; 81003; 83735; 83880; 84443; 84484; 85025; 85610; 85730; 87637; 93005; 99284; A9270